=== PATIENT | male | born 1985 | race Caucasian/White ===

== ENCOUNTER 2016-12-18 23:34 | Emergency (ER) | payer MEDICAID ==
[~2016-12-18] VITALS: Ht 175.3 cm; Wt 68.0 kg
[~2016-12-18 23:34] MED LIST: FLEXERIL10 MG PO; LORTAB 5/500 501 TAB PO; LORTAB 500 MG-71 TAB PO; MOTRIN600 MG PO; PERCOCET 325 MG1 TA4 PO; ROBAXIN500 M1 PO; ULTRAM50 MG PO
--- NOTE | 2016-12-18 23:52 | Emergency Room Report ---
History of Present Illness Time Seen by [id number] Presenting Problem in Triage Pt arrived:Walked Presenting Problem:C/O FEVER AND ABDOMINAL PAIN ALL DAY. DENIES ANY VOMITING OR DIARRHEA STATES FEVER AT HOME WAS 100.9. 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 Y Clinical Suspician of Infection? Y Mental Status: 1 - Regular (Normal Baseline) Sepsis Risk:Low Sepsis Risk Have you (or family members/close friends) recently traveled outside the [place]? N If Yes, where/when: Have you had exposure to infectious disease within the past month? N TB? Other? Specify: Source patient, RN notes reviewed, family, old records Exam Limitations no limitations Comment lower abd pain with fever today with no rash or diarrhea and no gu sx Cardiac Chest Pain Chest pain indicative of cardiac No Timing/Duration this evening Severity moderate ALLERGIES Coded Allergies: prednisone (Intermediate, 11/06/16) History Medical History General CAD? No Angina: No OR: No Hypertension? No Hyperlipidemia? No CHF? No DVT? No PE? No COPD? No Asthma? No Anemia? No GERD? Yes Gastric ulcers? Yes GI Bleed? No Hernia? No Thyroid Problems? No Hypothyroidism? No CVA? No Seizures? No Diabetes? No Renal Insuffiency? No End Stage Renal Disease? No UTI? No Stones? No BPH? No GB Disease: No Nephritic Syndrome? No Asplenia? No Hepatitis? No Sickle Cell Disease? No Arthritis? No Migraines? No Cataracts? No Glaucoma? No MRSA? No HIV? No TB? No Anxiety? No Depression? No Cancer? No Site: N More? Yes Additional hx: MARIJUANA USE Immunization Hx DT/Tetanus < 1 YR AGO Surgical Hx Previous Surgery?N GUM SURGERY Social History Smoking Hx Smoker: Current Every Day Smoker Tobacco: Yes Type Cigarettes Packs/day < 1 Pack Alcohol Alcohol: No Drugs none Review of Systems All Other Systems Reviewed and Negative Constitutional fever Eyes denies drainage ENT denies: ear discharge. Respiratory denies cough Cardiovascular denies chest pain, denies syncope Gastrointestinal see HPI, abdominal pain, denies diarrhea, vomiting Genitourinary denies: dysuria, frequency, hesitancy, hematuria. Musculoskeletal denies back pain, denies joint pain, denies joint swelling, denies neck pain Skin denies rash Psychiatric/Neurological denies headache, denies seizure Physical Exam Vital Signs Vital Signs Date Time Temp Pulse Resp B/P Pulse O2 O2 Flow FiO2 Ox Delivery Rate 12/18 2340 97.7 70 18 137/81 100 - WBC >12,000 or <4,000 or 10% bands? 2 or more SIRS Criteria Met? B/P:137/81 MAP:99 Creatinine >2.0? UA output<0.5ml/kg/hr for 2 hrs? Platelet count >100,000? Lactate >2.0mmol/1? INR >1.2 or PTT > than 60 sec? Evidence of Organ Dysfunction? Provider documented clinical suspician of infection? Y Sepsis Criteria Count: 1 Sepsis Risk: Low Sepsis Risk General Appearance no apparent distress Eye Exam - bilateral eye PERRL, bilateral eye EOMI Ear, Nose, Throat normal ENT inspection Neck supple Respiratory Status No: respiratory distress. 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 No Results/Orders Laboratory Tests 12/19/16 0000: Amylase 78, Lipase 176 12/18/167: Sodium 143, Potassium 4.1, Chloride 107, Carbon Dioxide 34 H, BUN 14, Creatinine 1.2, Estimated Creat Clear 87, Estimated GFR (MDRD) 71, Glucose 107 H, Calcium 9.4, Total Bilirubin 0.5, AST 19, ALT 25, Alkaline Phosphatase 84, Total Protein 7.6, Albumin 3.8, Globulin 3.8 H, Albumin/Globulin Ratio 1.0 L, WBC 8.1, RBC 5.04, Hgb 15.5, Hct 46.4, MCV 92.1, RDW 12.4, Plt Count 258, MPV 7.2 L, Gran % 68.8, Gran # 5.6, Lymphocytes % 24.6, Monocytes % 4.9, Eosinophils % 1.2, Basophils % 0.5, Lymphocytes # 2.0, Monocytes # 0.4, Eosinophils # 0.1, Basophils # 0.0, PUBS MCHC 33.5, MCH 30.8, Urine Color YELLOW , Urine Appearance CLOUDY, Urine pH 8.0, Ur Specific [place] 1.015, Urine Protein TRACE H, Urine Ketones NEGATIVE, Urine Blood NEGATIVE, Urine Nitrate NEGATIVE, Urine Bilirubin NEGATIVE, Urine Urobilinogen 1.0, Ur Leukocyte Esterase NEGATIVE, Urine RBC NONE, Urine WBC OCC, Ur Squamous Epith Cells NONE, Amorphous Sediment 3+, Urine Bacteria TRACE, Urine Glucose NEGATIVE Current Medication Orders Sig/Tameka Start time Last Medication Dose Route Stop Time Status Admin Ketorolac 30 MG ONCE ONE 12/19 99 AC Tromethamine IV 12/19 010 Promethazine HCl 12.5 MG ONCE ONE 12/19 010 AC IV 12/19 0101 Promethazine HCl 1 MAC ONCE ONE 12/19 010 AC PO 12/19 010 Sodium Chloride 25 ML ONCE ONE 12/19 010 AC IV 12/19 0114 Sodium Chloride 1,000 ML .Q1H1M 12/19 0030 AC 12/19 IV 12/19 0130 0025 Sodium Chloride 10 ML PRN PRN 12/19 0030 AC IV 12/20 0024 Sodium Chloride 1,000 ML .STK-MED ONE 12/19 0021 DC IV Sodium Chloride 10 ML PRN PRN 12/18 2345 AC IV 12/19 2350 Orders Procedure Date/time Status DIET-NOTHING BY MOUTH 12/19 B Active LIPASE 12/19 0022 Complete AMYLASE 12/[address] ABD & PELVIS W/O CONTRAST 12/[address] ABD REQUEST 12/18 235 Complete IV SALINE LOCK 12/18 235 Active URINALYSIS/COMPLETE 12/18 235 Complete CBC WITH AUTO DIFF 12/18 235 Complete CHEM 12 PROFILE 12/18 2350 Complete XRAY/CT/US XRAY/CT/US CT abdomen, pelvis CT interpretation by discussed w/radiologist Time results known: 0050 CT Results normal/NAD Departure Departure Time of Disposition 005 Disposition DC Home or Self Care(routine) Clinical Impression Primary Impression: Abdominal pain Qualifiers: Abdominal location: lower abdomen, unspecified Qualified Code: R10.30 - Lower abdominal pain, unspecified Condition STABLE Patient Instructions DI for Abdominal Pain-Adult Additional Instructions fluids and see pcp for follow up Discharge Counseling Counseled pt/family regarding diagnosis, test results, medications/RX, follow up needs ED [place] [address]
[2016-12-18 23:58] LABS: HEMOGLOBIN 15.5 g/dL (14.1-18.0); LYMPH % 24.6 % (10-50); URINE BILIRUBIN - DIPSTICK NEGATIVE (NEG); URINE BLOOD NEGATIVE (NEG)
--- OUTSIDE RECORDS SUMMARY | 2016-12-19 00:07 | External Medical Summary Rpt ---
Author Author , HARRIET CAGLEOPAL Address Unknown Phone Care Team Providers Care Net Wpf Developer Name Role Phone AYOOB AND, AYOOB AND Unavailable Unavailable [facility], [facility] Unavailable Unavailable [facility], [facility] COLINDRES, COLINDRES Unavailable Unavailable WILBER OTTO, Unavailable Unavailable WILBER [facility], Unavailable Unavailable [facility], Unavailable Unavailable [facility] ZAMZAM, HARIGOVINDA Unavailable Unavailable R, ZAMZAM, HARIGOVINDA R [facility] # [id number], Unavailable Unavailable [facility] # [id number] GEMMA T, GEMMA T Unavailable Unavailable GODFREY MAT, GODFREY Unavailable Unavailable MAT DELAIR, DELAIR Unavailable Unavailable PINO FERNANDA, PINO FERNANDA Unavailable Unavailable KILEY, KILEY Unavailable Unavailable KILEY DUS, KILEY Unavailable Unavailable DUS DICIRO DOM, DICIRO Unavailable Unavailable DOM [facility] [place] FARAGASSO DEV, Unavailable Unavailable FARAGASSO DEV KALEB LAL, Unavailable Unavailable KALEB LAL SIEGEL MARIOLA, SIEGEL Unavailable Unavailable MARIOLA KELLER JR, FULLER, Unavailable Unavailable JR AURE RAJIV G, Unavailable Unavailable AURE, RAJIV G [facility] Unavailable Unavailable INC, [facility] Unavailable Unavailable IMAGING [facility], [facility] DENISE MILLICENT, DENISE MILLICENT Unavailable Unavailable VERNON WALKER KING, Unavailable Unavailable TUSHAR ORTEGA, Unavailable Unavailable [facility] Un[facility] Unavailable Unavailable SERVICES, [facility] RASHARD CALLOWAY, Unavailable Unavailable RASHARD CALLOWAY MD LABS, LABS Unavailable Unavailable LABS, LABS Unavailable Unavailable WILLIE PONCE, Unavailable Unavailable WILLIE PONCE ROBERT, Unavailable Unavailable [facility], Unavailable Unavailable [facility] Unavailable [facility]available PLL[facility], [facility] RADLILLIE SHA, Unavailable Unavailable RADLILLIE SHA [facility], [facility] Unavailable Unavailable [facility] MEGHAN RAGLAND, Unavailable Unavailable MEGHAN [facility]AGLADN [id number] MENDEZ MAR, MENDEZ Unavailable Unavailable MAR SCALF JEREMIAH, SCALF JEREMIAH Unavailable Unavailable ALMA LAGOS Unavailable Unavailable DEMOND Ro DANIEL G SEELEY ELL, SEELEY Unavailable Unavailable DYLAN SOKAN, JONAH O, Unavailable Unavailable SOKAN, JONAH O [facility], Unavailable Unavailable [facility], Unavailable Unavailable [facility] GARO SHARIF, GARO Unavailable Unavailable RYA STEARJOSE SET, Unavailable Unavailable STEARLEY SET STEARLEY, THA T, Unavailable Unavailable STEARLEY, THA T ESTEBAN, ESTEBAN Unavailable Unavailable ESTEBAN BARBARA, ESTEBAN Unavailable Unavailable BARBARA SWINEY, JOHN A, Unavailable Unavailable SWINEY, JOHN A [facility] Unavailable Unavailable HOSPITALS, [facility] Unavailable Unavailable MEDICINE P, [facility]available Unavailable ASSIST, [facility] ASS[facility], Unavailable Unavailable [facility], Unavailable Unavailable [facility] SHANNON HONEYCUTT, Unavailable Unavailable SHANNON HONEYCUTT [facility] Unavailable Unavailable #493, [id number] KALEB APONTE, FAY, Unavailable Unavailable KALEB QUIÑONEZ W, KHANG W Unavailable Unavailable YOUNG JR CARRASCO, YOUNG Unavailable Unavailable LUNA Purpose Continuity of Care Document - 06-23-2008 through 2016 Problems Code Diagnosis DOS Provider Status M542 CERVICALGIA 11-06-2016 [facility] J135JIL STRAIN 11-06-2016 [facility] NECK LEVL INIT ENC 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 SITE SERV UNSPECIFIED FOUNDATION M545 LOW BACK 10-10-2016 [facility] M5416 RADICULOPAT 10-01-2016 [facility] HY [facility] MEDICAL GROUP M5442 LUMBAGO 10-01-2016 [facility] WITH HEALTH [facility] MEDICAL LEFT SIDE GROUP Z5181 ENCOUNTER 10-01-2016 MD LABS FOR THERAPEUTIC DRUG LEVEL MONITORING M92427 OTHER LONG 10-01-2016 MD LABS TERM CURRENT DRUG THERAPY K219 GASTRO-ESOP 09-01-2016 [facility] H [facility] DISEASE MEDICAL WITHOUT GROUP ESOPHAGITIS M6281 MUSCLE 09-01-2016 [facility] GENERALIZED MEDICAL GROUP [id number] PAIN IN 08-11-2016 [facility] LEFT LEG PHYSICIANS ASSIST Z0000 ENCOUNTER 08-11-2016 GEN ADULT [facility] MED EXAM HOSPITALS W/O ABNORMAL FIND M4806 SPINAL 07-30-2016 [facility] L[facility] REGION GROUP Z6822 BODY MASS 06-09-2016 [facility] INDEX BMI HEALTH 22.0-22.9 MEDICAL ADULT GROUP K5909 OTHER 11-19-2015 [facility] CONSTIPATIO HEALTH N MEDICAL GROUP K921 MELENA 11-19-2015 [facility] [id number] STRAIN 10-11-2015 [facility] MUSCLE HEALTH FASCIA & MEDICAL TENDON LOW GROUP BACK INITIAL [id number] STRN UNS 10-11-2015 [facility] M&T SHLDR HEALTH UP ARM LEVL MEDICAL RT ARM GROUP INIT ENC R0789 OTHER CHEST 07-20-2015 [facility] R079 CHEST PAIN 07-20-2015 [place] [facility] U[place]PEC[facility]IED SERV [facility] Z720 TOBACCO USE 07-20-2015 [facility] 7242 LUMBAGO 09-30-2012 [facility] MEDICINE P 8479 SPRAIN AND 09-30-2012 [facility] STRAIN OF FAMILY UNSPECIFIED MEDICINE P SITE OF BACK 7243 SCIATICA 09-20-2012 [facility] 7820 DISTURBANCE 09-20-2012 [facility] SENSATION 70633 OTHER 09-20-2012 [facility] DYSPNEA AND HOSPITAL RESPIRATORY ABNORMALITI ES V5869 LONG-TERM 09-20-2012 [facility] (CURRENT) HOSPITAL USE OF OTHER MEDICATIONS 9953 ALLERGY 09-15-2012 [facility] UNSPECIFIED [facility]ERGENCY NOT SERVICES ELSEWHERE CLASSIFIED E9320 ADRENL 09-15-2012 [facility] STEROIDS SERVICES CAUS ADVRS EFF TX USE 7295 PAIN IN 08-30-2012 [place] [facility] SOFT [facility] TISSUES OF [facility]OUNDAT[facility] LIMB 71770 ESOPHAGEAL 03-22-2012 [place] [facility] REFLUX [facility] 29358 CHEST PAIN 03-22-2012 [place] [facility] UNSPECIFIED SERV [facility] 79433 ABDOMINAL 03-22-2012 [place] [facility] PAIN, SERV EPIGASTRIC [facility] 24469 OTHER 03-21-2012 [facility] PAIN 8460 SPRAIN AND 03-21-2012 [facility] STRAIN OF EMERGENCY LUMBOSACRAL SERVICES 8472 LUMBAR 03-21-2012 [facility] STRAIN 7244 THORACIC/JOAQUIN 02-13-2012 [facility] MBOSACRAL EMERGENCY NEURITIS/RA SERVICES DICULITIS UNSPEC 9597 INJURY 10-05-2010 [place] [facility] OTHER&UNSPE SERV CIFIED KNEE FOUNDATIO LEG ANKLE&FOOT 7062 SEBACEOUS 10-01-2010 [facility] 71786 UNSPECIFIED 09-28-2010 [place] [facility] ENTHESOPATH [facility] Y OF ANKLE AND TARSUS 15829 UNSPECIFIED 09-28-2010 [facility] 07360 OTHER 09-28-2010 [place] [facility] GANGLION&CY SERV ST OF F[facility]AT[facility] SYNOVIUM TENDON&BURS A 7822 LOCALIZED 09-28-2010 [place] [facility] SUPERFICIAL SERV SWELLING FOUNDAT[facility] MASS OR LUMP 87646 RECURRENT 09-02-2010 [place] [facility] DISLOCATION SERV OF [facility] SHOULDER JOINT 98594 PAIN IN 11-23-2009 [place] [facility] JOINT, SERV SHOULDER [facility]OUND[facility] REGION 01366 CLOSED 11-23-2009 [facility] DISLOCATION EMERGENCY OF SERVICES SHOULDER ASSOCIATES UNSPECIFIED SITE V4589 OTHER 08-25-2009 [place] [facility] POSTSURGICA SERV L STATUS FOUNDAT[facility] OTHER 7245 UNSPECIFIED 07-09-2009 [place] [facility] BACKACHE SERV [facility] V1588 PERSONAL 07-09-2009 [place] HISTORY OF HOSPITAL FALL 87644 CLOSED 06-21-2009 [facility] [place] ANTERIOR RADIOLOGY DISLOCATION OF HUMERUS E8499 UNSPECIFIED 06-10-[address] HOSP[address] OCCURRENCE E9270 OVEREXERTIO 06-10-2009 [facility] N FROM HOSPITAL SUDDEN STRENUOUS MOVEMENT 5220 PULPITIS 03-13-2009 [facility] NARVAEZ [facility] N02 8470 NECK SPRAIN 01-14-2009 [place] [facility] AND STRAIN SERV [facility] 79878 CONTUSION 01-14-2009 [place] [facility]ICAL OF SHOULDER SERV REGION [facility] 91014 HEAD 01-14-2009 [place] [facility] INJURY, SERV UNSPECIFIED FOUNDAT[facility] 93693 INJURY OF 01-14-2009 [place] [facility] FACE AND SERV NECK OTHER FOUNDATIO AND UNSPECIFIED 9592 INJURY 01-14-2009 [place] [facility] OTHER&UNSPE SERV CIFIED [facility]OUNDATIO SHOULDER&UP PER ARM 9593 INJURY 01-14-2009 [place] [facility] OTHER&UNSPE SERV CIFIED FOUNDATIO ELBOW FOREARM&WRI ST E8809 ACCIDENTAL 01-14-2009 [facility] MEDICAL FALL ON OR SERV FROM OTHER FOUNDATIO STAIRS OR STEPS V5489 OTHER 01-07-2009 [facility] 77391 DEVELOPMENT 08-16-2008 [facility] MEDICAL DISLOCATION IMAGING JOINT ASSOCIATES SHOULDER REGION E8490 PLACE OF 08-09-2008 [facility] OCCURRENCE, MEDICAL HOME [facility] 5210 DENTAL 07-03-2008 QU[facility] Escobar [facility]Z [facility] N02 S16.1XXA STRAIN OF MUSCLE, FASCIA AND TENDON AT NECK LEVEL, INIT Medications Na ND Rx Da Fi Fi Am Da Di Ph RX Ph St me C No te ll ll ou ys ag ar # ys at rm s nt no ma ic us Or Da si cy ia de te s n re d TR 00 06 07 16 4 00 WA Ac AM 37 -1 -1 .0 00 L- ti AD 84 5- 4- 00 04 MA ve OL 15 20 20 53 RT 10 17 17 06 HC 5 54 PH L AR 50 MA CY MG #5 TA 91 BL ET ME 31 06 07 60 30 00 WA Ac TH 72 -1 -1 .0 00 L- ti OC 20 5- 4- 00 07 MA ve AR 53 20 20 49 RT BA 30 17 17 37 MO 1 31 PH L AR 50 MA 0 CY MG #5 TA 91 BL ET OX 00 05 06 60 15 00 BA Ac YC 40 -1 -0 .0 00 PT ti OD 60 0- 2- 00 00 IS ve ON 52 20 20 20 T -A 20 17 17 04 HE CE 5 92 AL TA TH MS NO RI PH CH EN MO ND 7. 5- AL 32 OF 5 ES SI ON AL PH AR MA CY NI 00 05 06 28 28 00 BA Ac CO 53 -1 -0 .0 00 PT ti TI 61 0- 2- 00 00 IS ve NE 10 20 20 60 T 88 17 17 51 HE 21 8 18 AL TH MG /2 RI 4H CH R MO PA ND TC H AL OF ES SI ON AL PH AR MA CY OX 00 04 05 60 15 00 BA Ac YC 40 -1 -0 .0 00 PT ti OD 60 0- 5- 00 00 IS ve ON 52 20 20 20 T -A 20 17 17 03 HE CE 5 43 AL TA TH MS NO RI PH CH EN MO ND 7. 5- AL 32 OF 5 ES SI ON AL PH AR MA CY OX 65 03 03 45 11 00 BL Ac YC 16 -0 -3 .0 00 UE ti OD 20 8- 1- 00 00 GR ve ON 20 20 28 -A 75 17 17 81 S CE 0 64 FA TA MS MS LY NO PH PH EN AR MA 7. CY 5- 32 5 OX 65 02 03 45 11 00 BL Ac YC 16 -1 -1 .0 00 UE ti OD 20 4- 0- 00 00 GR ve ON 20 28 -A 75 17 17 61 S CE 0 14 FA TA MS MS LY NO PH PH EN AR MA 7. CY 5- 32 5 OX 65 01 02 60 15 00 BL Ac YC 16 -1 -1 .0 00 UE ti OD 20 6- 0- 00 00 GR ve ON 20 28 -A 75 17 17 37 S CE 0 57 FA TA MS MS LY NO PH PH EN AR MA 7. CY 5- 32 5 OX 65 12 01 60 15 00 BL Ac YC 16 -1 -1 .0 00 UE ti OD 20 5- 3- 00 00 GR ve ON 20 20 28 -A 75 16 17 11 S CE 0 95 FA TA MS MS LY NO PH PH EN AR MA 7. CY 5- 32 5 OX 00 05 05 16 4 CV 36 DA Ac YC 59 -0 -0 .0 S 28 LE ti OD 10 8- 8- 00 PH 91 ve ON 93 20 20 AR II -A 30 10 10 MA CE 1 CY TH TA # OM MS NO 02 PH 33 EN 2 7. 5- 32 5 OX 00 01 02 00 15 1 WA 22 CE Ac YC 40 -2 -1 .0 L- 17 LL ti OD 60 8- 1- 00 MA 43 AR ve ON 51 20 20 RT 4 OS E- 20 10 10 I AC 1 PH - ET AR YO AM MA RB IN CY A OP PA HE #4 TR N 93 IC 5- K 32 M 5 60 10 11 00 20 3 SO 32 MO Ac 95 -2 -0 .0 PE 57 RR ti 10 0- 5- 00 RS 99 IS ve 79 20 20 77 09 09 FA RO 0 MS BE LY RT H DR UG PE 00 10 10 00 30 7 SO 32 AL Ac NI 78 -1 -2 .0 PE 52 LE ti CI 11 4- 2- 00 RS 73 N ve LL 65 20 20 BR IN 51 09 09 FA AN 0 MS DO VK LY N I 50 DR 0 UG MG TA BL ET ET 51 10 10 00 16 4 SO 32 AL Ac OD 67 -1 -2 .0 PE 52 LE ti OL 24 4- 2- 00 RS 74 N ve AC 01 20 20 BR 80 09 09 FA AN 40 1 MS DO 0 LY N MG I DR TA UG BL ET 00 08 09 00 16 2 RI 28 No Ac 40 -2 -1 .0 TE 34 t ti 60 4- 0- 00 5 Av ve 35 20 20 AI ai 70 09 09 D la 5 #7 bl 89 e 2 IB 55 08 08 00 40 13 SO 32 FL Ac UP 11 -1 -2 .0 PE 00 AN ti RO 10 7- 7- 00 RS 77 AG ve FE 68 20 20 AN N 30 09 09 FA 60 5 MS JA 0 LY ME MG S DR P TA UG BL ET 00 08 08 00 6. 2 SO 32 FL Ac 59 -1 -2 00 PE 00 AN ti 10 7- 7- 0 RS 78 AG ve 34 20 20 AN 90 09 09 FA 5 MS JA LY ME S DR P UG TR 65 04 05 01 20 5 SO 31 Ac AM 16 -1 -0 .0 PE 15 LL ti AD 20 7- 7- 00 RS 27 AF ve OL 62 20 20 LO 71 09 09 FA R HC 1 MS OS L LY IA [address] M MG UG TA BL ET TR 65 04 04 00 20 5 SO 31 Ac AM 16 -1 -2 .0 PE 15 LL ti AD 20 7- 3- 00 RS 27 AF ve OL 62 20 20 LO 71 09 09 FA R HC 1 MS OS L LY IA [address] M MG UG TA BL ET 00 03 04 00 6. 1 EA 12 FL Ac 59 -2 -[address] 06 AN ti 10 5- 9- 0 SI 99 AG ve 38 20 20 DE AN 50 09 09 1 PH JA AR ME MA S CY P OF CY NT HI AN A 00 03 03 00 12 3 EA 11 SO Ac 59 -1 -[address] 96 KA ti 10 8- 6- 00 SI 38 N ve 38 20 20 DE BA 50 09 09 BA 1 PH TU AR ND MA E CY O OF CY NT HI AN A ET 51 02 03 00 16 4 SO 30 AL Ac OD 67 -2 -1 .0 PE 66 LE ti OL 24 5- 2- 00 RS 39 N ve AC 01 20 20 BR 80 09 09 FA AN 40 1 MS DO 0 LY N MG I TA UG BL ET 60 02 02 00 24 4 CA 94 MC Ac 95 -0 -2 .0 RR 01 LA ti 10 9- 6- 00 IN 94 UR ve 79 20 20 GT IN 77 [address] BELL UG LD R AM 00 02 02 00 21 7 SO 30 MC Ac OX 78 -1 -2 .0 PE 53 LA ti IC 12 0- 6- 00 RS 13 UR ve IL 61 20 20 IN LI 30 09 09 FA N 5 MS DO 50 LY NA [address] R UG CA PS UL E 49 02 02 00 30 7 CA 94 MC Ac 88 -0 -2 .0 RR 01 LA ti 40 9- 6- 00 IN 93 UR ve 77 20 20 GT IN 90 [address] RAY HILL LD R ET 51 01 01 00 16 4 SO 30 AL Ac OD 67 -2 -3 .0 PE 37 LE ti OL 24 0- 0- 00 RS 27 N ve AC 01 20 20 BR 80 09 09 FA AN 40 1 MS DO 0 LY N MG I TA UG BL ET PE 00 01 01 00 28 7 SO 30 AL Ac NI 78 -2 -3 .0 PE 37 LE ti CI 11 0- 0- 00 RS 26 N ve LL 65 20 20 BR IN 51 09 09 FA AN 0 MS DO VK LY N I 50 DR 0 UG MG TA BL ET Procedures Procedure DOS Code Location Performer Comment RADEX 88395 [facility] SPINE 7 MEDICAL CERVICAL IMAGING 4 OR 5 ASS VIEWS DRUG TST G0483 LABS MD LABS DEFINITV 7 DR ID METH P DAY 22/MORE DR MALDONADO DRUG TEST 87618 LABS MD LABS PRSMV 7 INSTRMNT CHEMISTRY ANALYZERS MRI 87288 [facility] [place] RADMANESH SPINAL 6 RADIOLOGY SHA CANAL LUMBAR W/O CONTRAST MATERIAL MRI 89314 [facility] SPINAL 6 [facility] LUMBAR W/O CONTRAST MATERIAL INJECTION J1885 [facility] KILEY [address] [place] [address] [facility] TROM[facility]AM INE PER 15 MG THERAPEUT 36571 [facility] KILEY IC 6 HEALTH DUS PROPHYLAC MEDICAL TIC/DX GROUP INJECTION SUBQ/IM RADEX 31281 [facility] [place] SCALF JEREMIAH SPINE 6 RADIOLOGY LUMBSCRL COMPL W/BENDING VIEWS MIN [address] [place] [address] [facility] FREE 6 [facility] [address] [facility] THYROID 6 [facility] STIMULATI [facility]OSP HOSP NG HORMONE TSH COMPREHEN 46285 [facility] SIVE 6 [facility] METABOLIC [facility]OSP HOSP PANEL 25 67741 [facility] HYDROXY 6 [facility] INCLUDES HOSP HOSP FRACTIONS IF PERFORMED RADEX 79954 [facility] SPINE 6 [facility] LUMBOSACR [facility] [place] AL ONLY BENDING 2/3 VIEWS BLOOD 04449 [facility] COUNT 6 [facility] COMPLETE HOSP HOSP AUTO&AUTO DIFRNTL WBC RADEX 34854 [facility] SHOULDER 6 [facility] MINIMUM 2 GROUP GROUP VIEWS RADEX 43508 [facility] SPINE 6 [facility] AL 2/3 GROUP GROUP VIEWS COMPREHEN 65624 [facility] SIVE 6 Y Y METABOLIC HOSPITAL HOSPITAL PANEL ECG 03691 [facility] 6 Y Y ECG HOSPITAL HOSPITAL W/LEAST 12 LDS TRCG ONLY W/O I&R FIBRIN 27678 [facility] DGRADJ 6 Y Y PRODUCTS HOSPITAL HOSPITAL D-DIMER QUANTITAT VERA ECG 38821 [facility] DICIRO ROUTINE 6 CHICA DOM ECG EMERGENCY W/LEAST PHYS 12 LDS I&[place] [address] [facility] TROPONIN 6 Y Y QUANTITAT HOSPITAL HOSPITAL VERA BLOOD 12378 [facility] COUNT 6 Y Y COMPLETE HOSPITAL HOSPITAL AUTO&AUTO DIFRNTL WBC RADIOLOGI 84370 [facility] C EXAM 6 Y Y CHEST 2 HOSPITAL HOSPITAL VIEWS FRONTAL&L ATERAL ECG 25347 [facility] ROUTINE 3 MEDICAL OTTO ECG SERV W/LEAST FOUNDATIO 12 LDS I&R ONLY ECG 93697 [place] SIEGEL ROUTINE 2 MEDICAL NAN ECG SERV W/LEAST FOUNDATIO 12 LDS I&R ONLY INJECTION J1885 [facility] 2 Y Y KETOROLAC [facility] TROMETHAM INE PER 15 MG INJ J2930 [facility] METHYLPRD 2 Y Y NISOLONE [facility] SODIUM SUCCNAT TO 125 MG THERAPEUT 99731 [facility] IC 2 Y Y PROPHYLAC [facility] TIC/DX INJECTION SUBQ/IM RADEX 09128 [place] AYOOB AND FOOT 1 MEDICAL COMPLETE SERV MINIMUM 3 FOUNDATIO VIEWS RADEX 58665 [place] REXRO[place] FOOT 1 MEDICAL SHU COMPLETE SERV MINIMUM 3 FOUNDATIO VIEWS RADEX 04398 [place] AYOOB AND SHOULDER 1 MEDICAL COMPLETE SERV MINIMUM 2 FOUNDATIO VIEWS RADEX 23313 [place] ZAMZAM, SHOULDER 0 MEDICAL HARIGOVIN COMPLETE SERV DA R MINIMUM 2 FOUNDATIO VIEWS NONINVASI 84480 [facility] VE 0 Y Y EAR/PULSE [facility] OXIMETRY SINGLE DETER INJECTION J1885 [facility] 0 Y Y [facility] TROMETHAM INE PER 15 MG THER 98843 [facility] PROPH/DX 0 Y Y NJX IV [facility] PUSH SINGLE/1S T SBST/DRUG THERAPEUT 23631 [facility] IC 0 Y Y PROPHYLAC [facility] TIC/DX INJECTION SUBQ/IM RADEX 27506 [place] DENISE MILLICENT SHOULDER 0 MEDICAL COMPLETE SERV MINIMUM 2 FOUNDATIO VIEWS INJECTION J1885 [facility] 0 Y Y KETOROLAC [facility] TROMETHAM INE PER 15 MG RADEX 56796 [facility] [place] AURE, SHOULDER 0 RADIOLOGY RAJIV G COMPLETE MINIMUM 2 VIEWS RADEX 45461 [place] SHOULDER 0 CO CO [facility] MINIMUM 2 [place] [address] [place]AG[place] SHOULDER 0 CO , [facility] W/MANIPUL ATION W/O ANES DEEP 200 D9220 QU[facility] FLORES, SEDATION/ 9 NARVAEZ [facility] ANESTHESI N02 A-1ST [address] 08-23-200 22910 [facility] HEAD/BRAI 9 Y Y N W/O HOSPITAL HOSPITAL CONTRAST MATERIAL INJECTION J2405 [facility] 9 Y Y [facility] PER 1 MG RADEX 48788 [facility] SHOULDER 9 Y Y [address] [place] [address] [place] APONTE, CERVICAL 9 MEDICAL KALEB N SPINE W/O SERV CONTRAST FOUNDATIO MATERIAL RADEX 50933 [facility] ELBOW 9 Y Y COMPLETE [facility] MINIMUM 3 VIEWS THER 87337 [facility] PROPH/DX 9 Y Y NJX IV HOSPITAL HOSPITAL PUSH SINGLE/1S T SBST/DRUG INJECTION J1170 [facility] 9 Y Y HYDROMORP [facility] OSCAR UP TO 4 MG RADEX 59134 [facility] SHOULDER 9 Y Y COMPLETE [facility] MINIMUM 2 VIEWS NONINVASI 73740 [facility] VE 9 Y Y EAR/PULSE [facility] OXIMETRY SINGLE DETER THERAPEUT 58420 [facility] IC 9 Y Y INJECTION [facility] IV PUSH EACH NEW DRUG CLOSED 7971 NANCY CRUZ REDUCTION 9 MEM HOSP [facility]OS[facility] OF INC INC DISLOCATI ON OF SHOULDER RADEX 86768 NANCY CRUZ SHOULDER 9 MEM HOSP [facility]OS[facility] COMPLETE INC [place] MINIMUM [address] [place] [address] [facility] SHOULDER 9 EMERGENCY KALEB P DISLC SERVICES W/MANIPUL ATION W/[place] [address] [facility] SHOULDER 9 , SHANNON M , SHANNON M DISLC W/MANIPUL ATION W/O ANES RADEX 14168 [place] SHOULDER 9 CO CO COMPLETE [facility] MINIMUM 2 VIEWS RADEX 90366 [facility] ROSARIO, SHOULDER 9 MEDICAL WILLIE P COMPLETE IMAGING MINIMUM 2 ASSOCIATE VIEWS S RADEX 35931 [facility] ROSARIO, SHOULDER 9 MEDICAL WILLIE P 1 VIEW IMAGING ASSOCIATE S CLOSED 7971 NANCY CRUZ REDUCTION 9 [facility] [place] [address] [place] LAL, SHOULDER 9 EMERGENCY KALEB P DISLC SERVICES W/MANIPUL ATION W/[place] [address] [place] YUN, SHOULDER 9 EMERGENCY JONAH DISLC SERVICES O W/MANIPUL ATION W/O ASSOCIATE JOSH Tineo RADEX 26637 ANNI PONCE, SHOULDER 9 MEDICAL WILLIE P 1 VIEW IMAGING ASSOCIATE S CLOSED 7971 NANCY CRUZ REDUCTION 9 [facility] OF INC INC DISLOCATI ON OF SHOULDER RADEX 41487 NANCY CRUZ SHOULDER 9 MEM HOSP [facility] COMPLETE INC INC MINIMUM 2 VIEWS ORTHOPANT 40275 [facility] [place] OGRAM 9 SOLANGE Hernandez IIIPSC N02 DEEP D9220 [facility] [place] SEDATION/ 9 SOLANGE Hernandez GENERAL IIIPSC ANESTHESI N02 A-1ST 30 MINUTES Encounters Encounter Start End Date Code Location Performer Type Date EMERGENCY 04799 KAMI KELLER, 7 7 PHYSICIAN JR PERALTA S, PLLC T VISIT HIGH/URGE NT SEVERITY OFFICE 74454 [facility]AT 7 7 MEDICAL ASTELLANO ION SERV S NEW/ESTAB FOUNDATIO PATIENT N 40 MIN OFFICE 07777 [facility] OUTPATIEN 7 7 [facility] T VISIT 5 E MINUTES [facility]OS[facility] - 7 7 [facility]ALTHCAR OUTPATIEN E T HOSPITALS OFFICE 29287 ISLAM ESTEBAN OUTPATIEN 7 7 HEALTH T VISIT MEDICAL 25 GROUP MINUTES OFFICE 03484 ISLAM KILEY OUTPATIEN 7 7 HEALTH T VISIT MEDICAL 15 GROUP MINUTES HOSPITAL [facility] - 7 7 HEALTHCAR OUTPATIEN E T HOSPITALS OFFICE 56052 DAVID CONSULTAT 7 7 [place] ION PHYSICIAN NEW/ESTAB S ASSIST PATIENT 40 MIN OFFICE 38617 [facility] 7 7 [facility] T VISIT 5 E MINUTES [facility]OSPITALS OFFICE 80759 ISLAM [facility] OUTPATIEN 7 7 HEALTH T VISIT MEDICAL 15 GROUP MINUTES OFFICE 22777 [facility] OUTPATIEN 7 7 HEALTH T VISIT MEDICAL 15 GROUP MINUTES OFFICE 70522 [facility] OUTPATIEN 7 7 HEALTH T VISIT MEDICAL 25 GROUP MINUTES OFFICE 94118 ISLAM [facility] OUTPATIEN 6 6 HEALTH DUS T VISIT MEDICAL 15 GROUP MINUTES OFFICE 07051 ISLAM [facility] OUTPATIEN 6 6 HEALTH DUS T VISIT MEDICAL 15 GROUP MINUTES OFFICE 74339 ISLAM K[facility] OUTPATIEN 6 6 HEALTH DUS T VISIT MEDICAL 25 GROUP MINUTES OFFICE 55821 ISLAM ESTEBAN OUTPATIEN 6 6 HEALTH BARBARA T VISIT MEDICAL 15 GROUP MINUTES OFFICE 97578 ISLAM [facility] OUTPATIEN 6 6 HEALTH DUS T VISIT MEDICAL 15 GROUP MINUTES HOSPITAL [facility] - 6 6 HEALTH OUTPATIEN SHERIDAN T OFFICE 37356 ISLAM KILEY OUTPATIEN 6 6 HEALTH DUS T VISIT MEDICAL 25 GROUP MINUTES OFFICE 12742 ISLAM [facility] OUTPATIEN 6 6 HEALTH DUS T VISIT MEDICAL 15 GROUP MINUTES OFFICE 49522 ISLAM [facility] OUTPATIEN 6 6 HEALTH DUS T VISIT MEDICAL 15 GROUP MINUTES OFFICE 06618 [facility] OUTPATIEN 6 6 HEALTH DUS T VISIT MEDICAL 15 GROUP MINUTES [facility]OSP[facility] - 6 6 [facility] OUTPATIEN HOSP T OFFICE 92239 ISLAM KI[facility] OUTPATIEN 6 6 HEALTH DUS T NEW 30 MEDICAL MINUTES GROUP OFFICE 50376 [facility] OUTPATIEN 6 6 HEALTH T NEW 45 MEDICAL MINUTES GROUP EMERGENCY 98346 [facility]IT 6 6 Y [facility] T VISIT HIGH/URGE NT SEVERITY [facility] 94739 [facility] DEPT 6 6 [place] DOM VISIT EMERGENCY HIGH PHYS SEVERITY& THREAT FUNCJ OFFICE 15211 [facility] 3 3 [place] FAMILY ELL T NEW 30 MEDICINE MINUTES P EMERGENCY 41601 [facility] 3 3 [place] DEPARTMEN EMERGENCY T VISIT PHYS MODERATE SEVERITY HOSPITAL [facility] 3 3 [facility] 14683 [place] MENDEZ 3 3 EMERGENCY MAR DEPARTMEN SERVICES T VISIT HIGH/URGE NT SEVERITY EMERGENCY 83518 [place] NAGY 3 3 EMERGENCY DEV DEPARTMEN SERVICES T VISIT MODERATE SEVERITY EMERGENCY 45325 MER PINO FERNANDA 3 3 MEDICAL DEPARTMEN SERV T VISIT FOUNDATIO MODERATE SEVERITY EMERGENCY 59205 MER GODFREY 2 2 MEDICAL MAT DEPARTMEN SERV T VISIT FOUNDATIO HIGH/URGE NT SEVERITY [facility]OSP[facility] 66814 [place] WYMAN 2 2 EMERGENCY RYA DEPARTMEN SERVICES T VISIT HIGH/URGE NT SEVERITY EMERGENCY 63676 UNIVERSIT 2 2 Y [facility] HOSPITAL T VISIT LOW/MODER SEVERITY EMERGENCY 16114 UN[facility]ERSIT 2 2 Y [facility] [facility] T VISIT MODERATE SEVERITY [facility]OSPITAL [facility] 21549 UNIVERSIT 1 1 Y [facility] T VISIT LOW/MODER SEVERITY [facility]OSPITAL [facility] 1 [facility] 71164 UNIVERSIT 1 1 Y [facility] T VISIT LOW/MODER SEVERITY [facility]OSPITAL [facility] 41444 MER REN JR 1 1 [facility] DEPARTMEN SERV T VISIT FOUNDATIO MODERATE SEVERITY EMERGENCY 83402 APOLONIA RODRIGUEZCheyanne, 0 0 EMERGENCY JOHN DEPARTMEN SERVICES A T VISIT MODERATE ASSOCIATE SEVERITY S EMERGENCY 22407 APOLONIA MENENDEZ T 0 0 [facility] MOD[facility]ATE SEVERITY H[facility] - 0 0 [facility] T EMERGENCY 03689 UNIVERSIT 0 0 Y [facility] T VISIT LOW/MODER SEVERITY [facility] - 0 0 [facility] 30947 MER DE LA ROSA, 0 0 MEDICAL THA T DEPARTMEN SERV T VISIT FOUNDATIO MODERATE SEVERITY HOSPITAL [facility]ERSIT - 0 0 [facility] 47431 UNIVERSIT 0 0 Y [facility] T VISIT LOW/MODER SEVERITY EMERGENCY 26479 MER DE LA ROSA 0 0 MEDICAL SET DEPARTMEN SERV T VISIT FOUNDATIO MODERATE SEVERITY EMERGENCY 74234 CHELY 0 0 CO [facility] T VISIT LIMITED/M [facility] HOSPITAL CHELY - 0 0 [facility] T EMERGENC[facility] 41868 UNIVERSIT 9 9 Y [facility] T VISIT HIGH/URGE NT SEVERITY HOSPITAL UNIVERSIT - 9 9 [facility] EMER[facility]ENC[facility] 85772 APOLONIA LAL, 9 9 EMERGENCY KALEB P DEPARTMEN SERVICES T VISIT HIGH/URGE ASSOCIATE NT S SEVERITY EMERGENCY 91356 NANCY 9 9 [facility] T VISIT MODERATE SEVERITY HOSPITAL NANCY - 9 9 [facility] - 9 9 [facility] T EMERGENCY 88071 CHELY 9 9 [facility] T [facility]ISIT LIMITED/M [facility]PITAL NANCY - 9 9 [facility] 71904 APOLONIA LAL, 9 9 EMERGENCY [facility] SERVICES T VISIT MODERATE ASSOCIATE SEVERITY S EMERGENCY 09919 NANCY 9 9 [facility] T VISIT LOW/MODER SEVERITY HOSPITAL NANCY - 9 9 [facility] EMERGENCY 59433 NANCY 9 9 [facility] T VISIT HIGH/URGE NT SEVERITY OFFICE 93429 MAHENDRA STERLING 9 9 [facility] N[facility]
--- OUTSIDE RECORDS SUMMARY | 2016-12-19 00:07 | External Medical Summary Rpt ---
Author Author , HARRIET CAGLEOPAL Address Unknown Phone [email or web address] Care Team Providers Care Garage Hand Name Role Phone AYOOB AND, AYOOB AND Unavailable Unavailable [facility] Unavailable Unavailable MEDICAL GROUP, [facility] Unavailable Unavailable SHERIDAN, [facility] COLINDRES, COLINDRES Unavailable Unavailable WILBER [facility], Unavailable Unavailable [facility], Unavailable Unavailable [facility], Unavailable Unavailable [facility] ZAMZAM, HARIGOVINDA Unavailable Unavailable R, ZAMZAM, HARIGOVINDA R [facility] # [id number], Unavailable Unavailable [facility] # [id number] GEMMA T, GEMMA T Unavailable Unavailable GODFREY MAT, GODFREY Unavailable Unavailable MAT DELAIR, DELAIR Unavailable Unavailable PINO FERNANDA, PINO FERNANDA Unavailable Unavailable KILEY, KILEY Unavailable Unavailable KILEY DUS, KILEY Unavailable Unavailable DUS DICIRO DOM, DICIRO Unavailable Unavailable DOM [facility] Un[facility] [place] [place] FARAGASSO DEV, Unavailable Unavailable FARAGASSO DEV KALEB LAL, Unavailable Unavailable KALEB LAL SIEGEL MARIOLA, SIEGEL Unavailable Unavailable MARIOLA KELLER JR, FULLER, Unavailable Unavailable JR AURE RAJIV G, Unavailable Unavailable AURE, RAJIV G [facility] Unavailable Unavailable INC, [facility] Unavailable Unavailable IM[facility]ING [facility], [facility] DENISE MILLICENT, DENISE MILLICENT Unavailable Unavailable VERNON WALKER KING, Unavailable Unavailable TUSHAR ORTEGA, Unavailable Unavailable [facility] Un[facility] Unavailable Unavailable SERVICES, [facility] RASHARD CALLOWAY, Unavailable Unavailable RASHARD CALLOWAY MD LABS, LABS Unavailable Unavailable LABS, LABS Unavailable Unavailable WILLIE PONCE, Unavailable Unavailable WILLIE PONCE ROBERT, Unavailable Unavailable [facility], Unavailable Unavailable [facility], Unavailable Unavailable PLL[facility], [facility] RADLILLIE SHA, Unavailable Unavailable RADLILLIE SHA [facility], [facility] Unavailable Unavailable [facility] MEGHAN RAGLAND, Unavailable Unavailable MEGHAN RAGLAND [id number] MENDEZ MAR, MENDEZ Unavailable Unavailable MAR SCALF JEREMIAH, SCALF JEREMIAH Unavailable Unavailable ALMA LAGOS Unavailable Unavailable DEMOND Ro DANIEL G SEELEY ELL, SEELEY Unavailable Unavailable DYLAN SOKAN, JONAH O, Unavailable Unavailable SOKAN, JONAH O [facility], Unavailable Unavailable [facility], Unavailable Unavailable [facility] GARO SHARIF, GARO Unavailable Unavailable RYA STEARJOSE SET, Unavailable Unavailable STEARLEY SET STEARLEY, THA T, Unavailable Unavailable STEARLEY, THA T ESTEBAN, ESTEBAN Unavailable Unavailable ESTEBAN BARBARA, ESTEBAN Unavailable Unavailable BARBARA SWINEY, JHON A, Unavailable Unavailable SWINEY, JOHN A [facility] Unavailable Unavailable HOSPITALS, [facility] Unavailable Unavailable MEDICINE P, [facility] Unavailable Unavailable ASSIST, [facility], Unavailable Unavailable [facility], Unavailable Unavailable [facility] SHANNON HONEYCUTT, Unavailable Unavailable SHANNON HONEYCUTT [facility] Unavailable Unavailable #493, [facility] KALEB APONTE, FAY, Unavailable Unavailable KALEB QUIÑONEZ W, KHANG W Unavailable Unavailable YOUNG JR CARRASCO, YOUNG Unavailable Unavailable LUNA Purpose Continuity of Care Document - 06-23-2008 through 2016 Problems Code Diagnosis DOS Provider Status M542 CERVICALGIA 11-06-2016 [facility] [id number] STRAIN 11-06-2016 [facility] NECK LEVL INIT ENC 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 M5416 RADICULOPAT 10-01-2016 [facility] M5442 LUMBAGO 10-01-2016 [facility] WITH [facility] MEDICAL LEFT SIDE GROUP Z5181 ENCOUNTER 10-01-2016 MD LABS FOR THERAPEUTIC DRUG LEVEL MONITORING S67747 OTHER LONG 10-01-2016 MD LABS TERM CURRENT DRUG THERAPY K219 GASTRO-ESOP 09-01-2016 [facility] H REFLUX HEALTH DISEASE MEDICAL WITHOUT GROUP ESOPHAGITIS M6281 MUSCLE 09-01-2016 [facility] WEAKNESS [facility] GENERALIZED MEDICAL GROUP [id number] PAIN IN 08-11-2016 [facility] LEFT LEG PHYSICIANS ASSIST Z0000 ENCOUNTER 08-11-2016 GEN [facility]ULT [facility] MED EXAM HOSPITALS W/O ABNORMAL FIND M4806 SPINAL 07-30-2016 [facility] LUMBAR MEDICAL REGION GROUP Z6822 BODY MASS 06-09-2016 [facility] INDEX BMI HEALTH 22.0-22.9 MEDICAL ADULT GROUP K5909 OTHER 11-19-2015 [facility] CONSTIPATIO HEALTH N MEDICAL GROUP K921 MELENA 11-19-2015 [facility] [id number] STRAIN 10-11-2015 [facility] MUSCLE HEALTH FASCIA & MEDICAL TENDON LOW GROUP BACK INITIAL [id number] STRN UNS 10-11-2015 [facility] M&T SHLDR HEALTH UP ARM LEVL MEDICAL RT ARM GROUP INIT ENC R0789 OTHER CHEST 07-20-2015 [facility] R079 CHEST PAIN 07-20-2015 [place] [facility] Z720 TOBACCO USE 07-20-2015 [facility] 7242 LUMBAGO 09-30-2012 [facility] FAMILY MEDICINE P 8479 SPRAIN AND 09-30-2012 [facility] STRAIN OF FAMILY UNSPECIFIED MEDICINE P SITE OF BACK 7243 SCIATICA 09-20-2012 [facility] 7820 DISTURBANCE 09-20-2012 [facility] SENSATION 18064 OTHER 09-20-2012 [facility] DYSPNEA AND HOSPITAL RESPIRATORY ABNORMALITI ES V5869 LONG-TERM 09-20-2012 [facility] (CURRENT) HOSPITAL USE OF OTHER MEDICATIONS 9953 ALLERGY 09-15-2012 [facility] UNSPECIFIED EMERGENCY NOT SERVICES ELSEWHERE CLASSIFIED E9320 ADRENL 09-15-2012 [place] STEROIDS SERVICES CAUS ADVRS EFF TX USE 7295 PAIN IN 08-30-2012 [place] [facility] SOFT [facility] TISSUES OF [facility]OUNDAT[facility] LIMB 07094 ESOPHAGEAL 03-22-2012 [place] [facility] RE[facility]UX [facility] 86005 CHEST PAIN 03-22-2012 [place] [facility] UNSPECIFIED SERV [facility] 25818 ABDOMINAL 03-22-2012 [place] [facility] PAIN, SERV EPIGASTRIC [facility] 81009 OTHER 03-21-2012 [facility] PAIN 8460 SPRAIN AND 03-21-2012 [facility] STRAIN OF EMERGENCY LUMBOSACRAL SERVICES 8472 LUMBAR 03-21-2012 [facility] STRAIN 7244 THORACIC/JOAQUIN 02-13-2012 [facility] MBOSACRAL EMERGENCY NEURITIS/RA SERVICES DICULITIS UNSPEC 9597 INJURY 10-05-2010 [place] [facility] OTHER&UNSPE SERV CIFIED KNEE FOUNDATIO LEG ANKLE&FOOT 7062 SEBACEOUS 10-01-2010 [facility] 16574 UNSPECIFIED 09-28-2010 [place] [facility] ENTHESOPATH [facility] Y OF ANKLE AND TARSUS 05416 UNSPECIFIED 09-28-2010 [facility] 82793 OTHER 09-28-2010 [place] [facility] GANGLION&CY SERV ST OF FOUNDAT[facility] SYNOVIUM TENDON&BURS A 7822 LOCALIZED 09-28-2010 [place] [facility] SUPERFICIAL SERV SWELLING FOUNDAT[facility] MASS OR LUMP 13104 RECURRENT 09-02-2010 [place] [facility] DISLOCATION SERV OF [facility] SHOULDER JOINT 84138 PAIN IN 11-23-2009 [place] [facility] JOINT, SERV SHOULDER FOUNDAT[facility] REGION 77131 CLOSED 11-23-2009 [place] DISLOCATION EMERGENCY OF SERVICES SHOULDER ASSOCIATES UNSPECIFIED SITE V4589 OTHER 08-25-2009 [place] [facility] POSTSURGICA SERV L STATUS FOUNDATIO OTHER 7245 UNSPECIFIED 07-09-2009 [place] [facility] BACKACHE SERV [facility] V1588 PERSONAL 07-09-2009 [place] HISTORY OF HOSPITAL FALL 16861 CLOSED 06-21-2009 [facility] [place] ANTERIOR RADIOLOGY DISLOCATION OF HUMERUS E8499 UNSPECIFIED 06-10-[address] HOSP[address] OCCURRENCE E9270 OVEREXERTIO 06-10-2009 [facility] [place] N FROM HOSPITAL SUDDEN STRENUOUS MOVEMENT 5220 PULPITIS 03-13-2009 QU[facility] NARVAEZ [facility] N02 8470 NECK SPRAIN 01-14-2009 [place] [facility] AND STRAIN SERV [facility] 90863 CONTUSION 01-14-2009 [place] [facility]ICAL OF SHOULDER SERV REGION [facility] 08047 HEAD 01-14-2009 [place] [facility] INJURY, SERV UNSPECIFIED FOUNDATIO 67968 INJURY OF 01-14-2009 [place] [facility] FACE AND SERV NECK OTHER FOUNDATIO AND UNSPECIFIED 9592 INJURY 01-14-2009 [place] [facility] OTHER&UNSPE SERV CIFIED FOUNDATIO SHOULDER&UP PER ARM 9593 INJURY 01-14-2009 [place] [facility] OTHER&UNSPE SERV CIFIED FOUNDATIO ELBOW FOREARM&WRI ST E8809 ACCIDENTAL 01-14-2009 [facility] MED[facility] FALL ON OR SERV FROM OTHER FOUNDATIO STAIRS OR STEPS V5489 OTHER 01-07-2009 [facility] 64251 DEVELOPMENT 08-16-2008 [place] [facility] DISLOCATION IMAGING JOINT ASSOCIATES SHOULDER REGION E8490 PLACE OF 08-09-2008 [place] OCCURRENCE, MEDICAL [facility] 5210 DENTAL 07-03-2008 QUIN[facility] Escobar NARVAEZ [facility] N02 S16.1XXA STRAIN OF MUSCLE, FASCIA AND [...] HE CE 5 92 AL TA TH HI NO RI PH CH EN MO ND 7. 5- IN 32 OF 5 ES SI ON AL PH AR MA CY NI 00 05 06 28 28 00 BA Ac CO 53 -1 -0 .0 00 PT ti TI 61 0- 2- 00 00 IS ve NE 10 20 20 60 T 88 17 17 51 HE 21 8 18 AL TH MG /2 RI 4H CH R MO PA ND TC H IN OF ES SI ON AL PH AR MA CY OX 00 04 05 60 15 00 BA Ac YC 40 -1 -0 .0 00 PT ti OD 60 0- 5- 00 00 IS ve ON 52 20 20 20 T -A 20 17 17 03 HE CE 5 43 AL TA TH HI NO RI PH CH EN MO ND 7. 5- IN 32 OF 5 ES SI ON AL PH AR MA CY OX 65 03 03 45 11 00 BL Ac YC 16 -0 -3 .0 00 UE ti OD 20 8- 1- 00 00 GR ve ON 20 20 28 -A 75 17 17 81 S CE 0 64 FA TA HI HI LY NO PH PH EN AR MA 7. CY 5- 32 5 OX 65 02 03 45 11 00 BL Ac YC 16 -1 -1 .0 00 UE ti OD 20 4- 0- 00 00 GR ve ON 20 28 -A 75 17 17 61 S CE 0 14 FA TA HI HI LY NO PH PH EN AR MA 7. CY 5- 32 5 OX 65 01 02 60 15 00 BL Ac YC 16 -1 -1 .0 00 UE ti OD 20 6- 0- 00 00 GR ve ON 20 28 -A 75 17 17 37 S CE 0 57 FA TA HI HI LY NO PH PH EN AR MA 7. CY 5- 32 5 OX 65 12 01 60 15 00 BL Ac YC 16 -1 -1 .0 00 UE ti OD 20 5- 3- 00 00 GR ve ON 20 20 28 -A 75 16 17 11 S CE 0 95 FA TA HI HI LY NO PH PH EN AR MA 7. CY 5- 32 5 OX 00 05 05 16 4 CV 36 DA Ac YC 59 -0 -0 .0 S 28 LE ti OD 10 8- 8- 00 PH 91 ve ON 93 20 20 AR II -A 30 10 10 MA CE 1 CY TH TA # OM HI NO 02 PH 33 EN 2 7. [...] 20 77 09 09 FA RO 0 HI BE LY RT H DR UG PE 00 10 10 00 30 7 SO 32 AL Ac NI 78 -1 -2 .0 PE 52 LE ti CI 11 4- 2- 00 RS 73 N ve LL 65 20 20 BR IN 51 09 09 FA AN 0 HI DO VK LY N I 50 DR 0 UG MG TA BL ET ET 51 10 10 00 16 4 SO 32 AL Ac OD 67 -1 -2 .0 PE 52 LE ti OL 24 4- 2- 00 RS 74 N ve AC 01 20 20 BR 80 09 09 FA AN 40 1 HI DO 0 LY N MG I DR [...] N 30 09 09 FA 60 5 HI JA 0 LY ME MG S DR P TA UG BL ET 00 08 08 00 6. 2 SO 32 FL Ac 59 -1 -2 00 PE 00 AN ti 10 7- 7- 0 RS 78 AG ve 34 20 20 AN 90 09 09 FA 5 HI JA LY ME S DR P UG TR 65 04 05 01 20 5 SO 31 Ac AM 16 -1 -0 .0 PE 15 LL ti AD 20 7- 7- 00 RS 27 AF ve OL 62 20 20 LO 71 09 09 FA R HC 1 HI OS L LY IA [address] M MG UG TA BL ET TR 65 04 04 00 20 5 SO 31 Ac AM 16 -1 -2 .0 PE 15 LL ti AD 20 7- 3- 00 RS 27 AF ve OL 62 20 20 LO 71 09 09 FA R HC 1 HI OS L LY IA [address] [...] 80 09 09 FA AN 40 1 HI DO 0 LY N MG I TA [...] LI 30 09 09 FA N 5 HI DO 50 LY NA 0 LD MG [...] 80 09 09 FA AN 40 1 HI DO 0 LY N MG I TA UG BL ET PE 00 01 01 00 28 7 SO 30 AL Ac NI 78 -2 -3 .0 PE 37 LE ti CI 11 0- 0- 00 RS 26 N ve LL 65 20 20 BR IN 51 09 09 FA AN 0 HI DO VK LY N I 50 DR 0 UG MG TA BL ET Procedures Procedure DOS Code Location Performer Comment RADEX 26657 [place] [facility] SPINE 7 MEDICAL CERVICAL IMAGING 4 OR 5 ASS VIEWS DRUG TST G0483 LABS MD LABS DEFINITV 7 DR ID METH P DAY 22/MORE DR MALDONADO DRUG TEST 76146 LABS MD LABS PRSMV 7 INSTRMNT CHEMISTRY ANALYZERS MRI 89559 [facility] [place] RADMANESH SPINAL 6 RADIOLOGY SHA CANAL LUMBAR W/O CONTRAST MATERIAL MRI 99911 [facility] SPINAL 6 [facility] LUMBAR W/O CONTRAST MATERIAL INJECTION J1885 [facility] KILEY [address] [place] [address] [facility] TROMETHAM INE PER 15 MG THERAPEUT 94508 [facility] KILEY IC 6 HEALTH DUS PROPHYLAC MEDICAL TIC/DX GROUP INJECTION SUBQ/IM RADEX 51637 [facility] [place] SCALF JEREMIAH SPINE 6 RADIOLOGY LUMBSCRL COMPL W/BENDING VIEWS MIN [address] [place] [address] [facility] FREE 6 [facility] [place] [address] [facility] THYROID 6 [facility] STIMULATI HOSP HOSP NG HORMONE TSH COMPREHEN 80271 [facility] SIVE 6 [facility] METABOLIC HOSP HOSP PANEL 25 87292 [facility] HYDROXY 6 [facility] INCLUDES HOSP HOSP FRACTIONS IF PERFORMED RADEX 58174 [facility] SPINE 6 [facility] LUMBOSACR [facility] NAMED [facility] AL ONLY BENDING 2/3 VIEWS BLOOD 65527 [facility] COUNT 6 [facility] COMPLETE HOSP HOSP AUTO&AUTO DIFRNTL WBC RADEX 95920 [facility] SHOULDER 6 [facility] MEDICAL MEDICAL MINIMUM 2 GROUP GROUP VIEWS RADEX 28580 [facility] SPINE 6 [facility] MEDICAL AL 2/3 GROUP GROUP VIEWS COMPREHEN 59154 [facility] SIVE 6 Y [facility]OSPITAL PANEL ECG 32797 [facility] ROUTINE 6 Y Y ECG HOSPITAL HOSPITAL W/LEAST 12 LDS TRCG ONLY W/O I&R FIBRIN 44812 [facility] DGRADJ 6 Y Y PRODUCTS HOSPITAL HOSPITAL D-DIMER QUANTITAT VERA ECG 64313 [facility] DICIRO ROUTINE 6 CHICA DOM ECG EMERGENCY W/LEAST PHYS 12 LDS I&[place] [address] [facility] TROPONIN 6 Y Y QUANTITAT HOSPITAL HOSPITAL VERA BLOOD 97780 [facility]IV[facility] COUNT 6 Y Y COMPLETE HOSPITAL HOSPITAL AUTO&AUTO DIFRNTL WBC RADIOLOGI 32488 [facility] C EXAM 6 Y Y CHEST 2 HOSPITAL HOSPITAL VIEWS FRONTAL&L ATERAL ECG 69837 [facility] ROUTINE 3 MEDICAL OTTO ECG SERV W/LEAST FOUNDATIO 12 LDS I&R ONLY ECG 46690 [place] SIEGEL ROUTINE 2 MEDICAL NAN ECG SERV W/LEAST FOUNDATIO 12 LDS I&R ONLY INJECTION J1885 [facility] 2 Y Y KETOROLAC [facility] TROMETHAM INE PER 15 MG INJ J2930 [facility] METHYLPRD 2 Y Y NISOLONE [facility] SODIUM SUCCNAT TO 125 MG THERAPEUT 39546 [facility] IC 2 Y Y PROPHYLAC [facility] TIC/DX INJECTION SUBQ/IM RADEX 83023 [place] AYOOB AND FOOT 1 MEDICAL COMPLETE SERV MINIMUM 3 FOUNDATIO VIEWS RADEX 31171 [place] FOOT 1 MEDICAL SHU COMPLETE SERV MINIMUM 3 FOUNDATIO VIEWS RADEX 87954 [place] AYOOB AND SHOULDER 1 MEDICAL COMPLETE SERV MINIMUM 2 FOUNDATIO VIEWS RADEX 30242 [place] ZAMZAM, SHOULDER 0 MEDICAL HARIGOVIN COMPLETE SERV DA R MINIMUM 2 FOUNDATIO VIEWS NONINVASI 59038 [facility] VE 0 Y Y EAR/PULSE [facility] OXIMETRY SINGLE DETER INJECTION J1885 [facility] 0 Y Y [facility] TROMETHAM INE PER 15 MG THER 41545 [facility] PROPH/DX 0 Y Y NJX IV [facility] HOSPITAL PUSH SINGLE/1S T SBST/DRUG THERAPEUT 57636 [facility] IC 0 Y Y PROPHYLAC [facility] TIC/DX INJECTION SUBQ/IM RADEX 09181 [place] DENISE MILLICENT SHOULDER 0 MEDICAL COMPLETE SERV MINIMUM 2 FOUNDATIO VIEWS INJECTION J1885 [facility] 0 Y Y KETOROLAC [facility] TROMETHAM INE PER 15 MG RADEX 26877 [facility] [place] AURE, SHOULDER 0 RADIOLOGY RAJIV G COMPLETE MINIMUM 2 VIEWS RADEX 85947 [facility] MO SHOULDER 0 CO CO [facility] MINIMUM 2 [place] [address] [facility] RAGLAND SHOULDER 0 CO , [facility] W/MANIPUL ATION W/O ANES DEEP 200 D9220 QUIN[facility] FLORES, SEDATION/ 9 NARVAEZ [facility] ANESTHESI N02 A-1ST [address] 08-23-200 07857 [facility] HEAD/BRAI 9 Y Y N W/O HOSPITAL HOSPITAL CONTRAST MATERIAL INJECTION J2405 [facility] 9 Y [facility] H[facility] PER 1 MG RADEX 76352 [facility] SHOULDER 9 Y Y [address] [place] [address] [place] APONTE, CERVICAL 9 MEDICAL KALEB N SPINE W/O SERV CONTRAST FOUNDATIO MATERIAL RADEX 33380 [facility] ELBOW 9 Y Y COMPLETE [facility] MINIMUM 3 VIEWS THER 03469 [facility] PROPH/DX 9 Y Y NJX IV HOSPITAL HOSPITAL PUSH SINGLE/1S T SBST/DRUG INJECTION J1170 [facility] 9 Y Y HYDROMORP [facility] OSCAR UP TO 4 MG RADEX 83765 [facility] SHOULDER 9 Y Y COMPLETE [facility] MINIMUM 2 VIEWS NONINVASI 93236 [facility] VE 9 Y Y EAR/PULSE [facility] HOSPITAL OXIMETRY SINGLE DETER THERAPEUT 88147 [facility] IC 9 Y Y INJECTION [facility] IV PUSH EACH NEW DRUG CLOSED 7971 NANCY CRUZ REDUCTION 9 MEM HOSP MEM HOSP OF INC INC DISLOCATI ON OF SHOULDER RADEX 81322 NANCY CRUZ SHOULDER 9 MEM HOSP MEM HOSP COMPLETE INC [place] MINIMUM [place] [address] [facility], SHOULDER 9 EMERGENCY KALEB P DISLC SERVICES W/MANIPUL ATION W/[place] [address] [facility] SHOULDER 9 , SHANNON M , SHANNON M DISLC W/MANIPUL ATION W/O ANES RADEX 69442 [facility] [place] SHOULDER 9 CO CO COMPLETE [facility] HOSPITAL MINIMUM 2 VIEWS RADEX 98846 [place] ROS[place], SHOULDER 9 MEDICAL WILLIE P COMPLETE IMAGING MINIMUM 2 ASSOCIATE VIEWS S RADEX 09154 [place] ROSARIO, SHOULDER 9 MEDICAL WILLIE P 1 VIEW IMAGING ASSOCIATE S CLOSED 7971 NANCY CRUZ REDUCTION 9 MEM HOSP [facility] OF INC [place] [address] [place] LAL, SHOULDER 9 EMERGENCY KALEB P DISLC SERVICES W/MANIPUL ATION W/[place] [address] [place] YUN, SHOULDER 9 EMERGENCY JONAH DISLC SERVICES O W/MANIPUL ATION W/O ASSOCIATE JOSH Tineo RADEX 17461 ANNI PONCE, SHOULDER 9 MEDICAL WILLIE P 1 VIEW IMAGING ASSOCIATE S CLOSED 7971 NANCY CRUZ REDUCTION 9 MEM HOSP MEM HOSP OF INC INC DISLOCATI ON OF SHOULDER RADEX 65202 NANCY CRUZ SHOULDER 9 MEM HOSP MEM HOSP COMPLETE INC INC MINIMUM 2 VIEWS ORTHOPANT 26491 [facility] [place] OGRAM 9 SOLANGE Hernandez IIIPSC N02 DEEP D9220 [facility] [place] SEDATION/ 9 SOLANGE Hernandez GENERAL IIIPSC ANESTHESI N02 A-1ST 30 MINUTES Encounters Encounter Start End Date Code Location Performer Type Date EMERGENCY 79063 KAMI KELLER, 7 7 PHYSICIAN JR PERALTA S, PLLC T VISIT HIGH/URGE NT SEVERITY OFFICE 21682 [facility] KIMBLE CONSULTAT 7 7 MEDICAL ASTELLANO ION SERV S NEW/ESTAB FOUNDATIO PATIENT N 40 MIN OFFICE 69908 [facility] OUTPATIEN 7 7 HEALTHCAR T VISIT 5 E MINUTES [facility]OSPITALS [facility] - 7 7 HEALTHCAR OUTPATIEN E T HOSPITALS OFFICE 89979 [facility] ESTEBAN OUTPATIEN 7 7 HEALTH T VISIT MEDICAL 25 GROUP MINUTES OFFICE 19384 [facility] KILEY OUTPATIEN 7 7 HEALTH T VISIT MEDICAL 15 GROUP MINUTES HOSPITAL [facility] - 7 7 HEALTHCAR OUTPATIEN E T HOSPITALS OFFICE 26703 DAV[facility] CONSULTAT 7 7 [place] ION PHYSICIAN NEW/ESTAB S ASSIST PATIENT 40 MIN OFFICE 20150 [facility] OUTPATIEN 7 7 HEALTHCAR T VISIT 5 E MINUTES HOSPITALS OFFICE 07284 [facility] OUTPATIEN 7 7 HEALTH T VISIT MEDICAL 15 GROUP MINUTES OFFICE 10225 [facility] OUTPATIEN 7 7 HEALTH T VISIT MEDICAL 15 GROUP MINUTES OFFICE 49019 [facility] OUTPATIEN 7 7 HEALTH T VISIT MEDICAL 25 GROUP MINUTES OFFICE 86352 [facility] OUTPATIEN 6 6 HEALTH DUS T VISIT MEDICAL 15 GROUP MINUTES OFFICE 82532 [facility] OUTPATIEN 6 6 HEALTH DUS T VISIT MEDICAL 15 GROUP MINUTES OFFICE 16587 [facility] OUTPATIEN 6 6 HEALTH DUS T VISIT MEDICAL 25 GROUP MINUTES OFFICE 68780 [facility] ESTEBAN OUTPATIEN 6 6 HEALTH BARBARA T VISIT MEDICAL 15 GROUP MINUTES OFFICE 62826 [facility] OUTPATIEN 6 6 HEALTH DUS T VISIT MEDICAL 15 GROUP MINUTES HOSPITAL [facility] - 6 6 HEALTH OUTPATIEN SHERIDAN T OFFICE 56958 [facility] OUTPATIEN 6 6 HEALTH DUS T VISIT MEDICAL 25 GROUP MINUTES OFFICE 83582 [facility] OUTPATIEN 6 6 HEALTH DUS T VISIT MEDICAL 15 GROUP MINUTES OFFICE 85990 [facility] OUTPATIEN 6 6 HEALTH DUS T VISIT MEDICAL 15 GROUP MINUTES OFFICE 92860 [facility] OUTPATIEN 6 6 HEALTH DUS T VISIT MEDICAL 15 GROUP MINUTES HOSPITAL CENTRAL - 6 6 [facility] OUTPATIEN HOSP T OFFICE 14127 [facility] OUTPATIEN 6 6 HEALTH DUS T NEW 30 MEDICAL MINUTES GROUP OFFICE 09162 [facility] OUTPATIEN 6 6 HEALTH T NEW 45 MEDICAL MINUTES GROUP EMERGENCY 77109 UNIVERSIT 6 6 Y [facility] HOSPITAL T VISIT HIGH/URGE NT SEVERITY [facility]OSPITAL [facility] 56455 [facility] DEPT 6 6 [facility] DOM VISIT EMERGENCY HIGH PHYS SEVERITY& THREAT FUNCJ OFFICE 19892 [facility] 3 3 [place] FAMILY ELL T NEW 30 MEDICINE MINUTES P EMERGENCY 82964 [facility] KHANG W 3 3 [place] DEPARTMEN EMERGENCY T VISIT PHYS MODERATE SEVERITY [facility]OSPITAL [facility] 3 3 [facility] 11243 [place] MENDEZ 3 3 EMERGENCY MAR DEPARTMEN SERVICES T VISIT HIGH/URGE NT SEVERITY EMERGENCY 38418 [place] NAGY 3 3 EMERGENCY DEV DEPARTMEN SERVICES T VISIT MODERATE SEVERITY EMERGENCY 52589 MER PINO FERNANDA 3 3 MEDICAL DEPARTMEN SERV T VISIT FOUNDATIO MODERATE SEVERITY EMERGENCY 93951 MRE GODFREY 2 2 MEDICAL MAT DEPARTMEN SERV T VISIT FOUNDATIO HIGH/URGE NT SEVERITY HOSPITAL [facility] - 2 [facility] 60048 [place]IA WYMAN 2 2 EMERGENCY RYA DEPARTMEN SERVICES T VISIT HIGH/URGE NT SEVERITY EMERGENCY 41778 UNIVERSIT 2 2 Y [facility] T VISIT LOW/MODER SEVERITY EMERGENCY 94383 UNIVERSIT 2 2 Y [facility] T VISIT MODERATE SEVERITY HOSPITAL [facility] - 2 [facility] 30236 UNIVERSIT 1 1 Y [facility] T VISIT LOW/MODER SEVERITY HOSPITAL [facility] - 1 [facility] 07554 UNIVERSIT 1 1 Y [facility] T VISIT LOW/MODER SEVERITY HOSPITAL [facility] - 1 [facility] 07460 MER REN JR 1 1 MEDICAL LUNA DEPARTMEN SERV T VISIT FOUNDATIO MODERATE SEVERITY EMERGENCY 85202 AP[place]IA RODRIGUEZCheyanne, 0 0 EMERGENCY JOHN DEPARTMEN SERVICES A T VISIT MODERATE ASSOCIATE SEVERITY S EMERGENCY 21437 [place]IA MENENDEZ T 0 0 [facility] MODERATE SEVERITY H[facility] - 0 0 [facility] T EMERGENCY 14076 UNIVERSIT 0 0 Y [facility] T VISIT LOW/MODER SEVERITY HOSPITAL [facility] - 0 [facility] 65076 MER DE LA ROSA, 0 0 MEDICAL THA T DEPARTMEN SERV T VISIT FOUNDATIO MODERATE SEVERITY HOSPITAL [facility] 0 [facility] 44520 UNIVERSIT 0 0 Y [facility] T VISIT LOW/MODER SEVERITY EMERGENCY 93271 MER DE LA ROSA 0 0 MEDICAL SET DEPARTMEN SERV T VISIT FOUNDATIO MODERATE SEVERITY EMERGENCY 42027 CHELY 0 0 CO [facility] T VISIT LIMITED/M [facility] HOSPITAL CHELY - 0 0 [facility] T EMERGENCY 86735 UNIVERSIT 9 9 Y [facility] T VISIT HIGH/URGE NT SEVERITY HOSPITAL [facility] - [facility] EMERGENCY 71024 APOLONIA LAL, 9 9 EMERGENCY KALEB P DEPARTMEN SERVICES T VISIT HIGH/URGE ASSOCIATE NT S SEVERITY EMERGENCY 13190 NANCY 9 9 [facility] T VISIT MODERATE SEVERITY HOSPITAL NANCY - 9 [facility] 9 9 [facility] T EMERGENCY [address] CHELY 9 9 [facility] T V[facility]IT LIMITED/M [facility] NANCY - 9 9 [facility] [address] [place] LAL, 9 9 EMERGENCY [facility] T VISIT MODERATE ASSOCIATE SEVERITY S EMERGENCY 68081 NANCY 9 9 [facility] T VISIT LOW/MODER SEVERITY HOSPITAL NANCY - 9 9 [facility] EMERGENCY 68027 NANCY 9 9 [facility] [place] T VISIT HIGH/URGE NT SEVERITY OFFICE [id number] MAHENDRA STERLING 9 9 [place] [facility] N[facility]
--- OUTSIDE RECORDS SUMMARY | 2016-12-19 00:10 | External Medical Summary Rpt ---
Demographics Preferred Language Spanish Marital Status Unknown Anglican Affiliation Unknown Race Unknown Ethnic Group Unknown Author Author , HARRIET LARIOS Address Unknown Phone Immunization Unable to retrieve immunization data due to connection failure with Immunization Registry. Please try again later.
--- OUTSIDE RECORDS SUMMARY | 2016-12-19 00:10 | External Medical Summary Rpt ---
Author Author , HARRIET Ball HARRIET Address Unknown Phone [email or web address] Care Team Providers Care Digital Marketing Assistant Name Role Phone AYOOB AND, AYOOB AND Unavailable Unavailable [facility] Un[facility] Unavailable [facility] Unavailable Unavailable [facility] COLINDRES, COLINDRES Unavailable Unavailable [facility], Unavailable Unavailable [facility], Unavailable Unavailable [facility] ZAMZAM, HARIGOVINDA Unavailable Unavailable R, ZAMZAM, HARIGOVINDA R [facility] # [id number], Unavailable Unavailable [facility] # [id number] GEMMA T, GEMMA T Unavailable Unavailable GODFREY MAT, GODFREY Unavailable Unavailable MAT DELAIR, DELAIR Unavailable Unavailable PINO FERNANDA, PINO FERNANDA Unavailable Unavailable KILEY, KILEY Unavailable Unavailable KILEY DUS, KILEY Unavailable Unavailable DUS DICIRO DOM, DICIRO Unavailable Unavailable DOM [facility] Un[facility] [place] [place] FARAGASSO DEV, Unavailable Unavailable FARAGASSO DEV KALEB LAL, Unavailable Unavailable KALEB LAL SIEGEL MARIOLA, SIEGEL Unavailable Unavailable MARIOLA KELLER JR, FULLER, Unavailable Unavailable AURE RAJIV G, Unavailable Unavailable AURE, RAJIV G [facility] Un[facility], [facility] Unavailable Unavailable [facility], [facility] DENISE MILLICENT, DENISE MILLICENT Unavailable Unavailable VERNON WALKER KING, Unavailable Unavailable TUSHAR ORTEGA, Unavailable Unavailable TUSHAR HENLEY [facility], [facility] Unavailable Unavailable [facility] Unavailable Unavailable SERVICES, [facility] RASHARD CALLOWAY, Unavailable Unavailable RASHARD CALLOWAY MD LABS, LABS Unavailable Unavailable LABS, LABS Unavailable Unavailable WILLIE PONCE, Unavailable Unavailable WILLIE PONCE ROBERT, Unavailable Unavailable SHANNEN FLORES [facility], Unavailable Unavailable [facility], Unavailable Unavailable PLL[facility], [facility] RADMANESH SHA, Unavailable Unavailable RADMANESH SHA [facility], [facility] Unavailable Unavailable [facility] MEGHAN RAGLAND, Unavailable Unavailable MEGHAN RAGLAND [id number], [facility] Unavailable Unavailable [id number] MENDEZ MAR, MENDEZ Unavailable Unavailable MAR SCALF JEREMIAH, SCALF JEREMIAH Unavailable Unavailable SCHWARTZCASSI, ALMA Unavailable Unavailable G, ALMA LAGOS G JOSE GARCIA Unavailable Unavailable ELL SOKAN, JONAH O, Unavailable Unavailable SOKAN, JONAH O [facility], Unavailable Unavailable [facility], Unavailable Unavailable [facility] WYMAN RYA, WYMAN Unavailable Unavailable RYA STEARLEY SET, Unavailable Unavailable STEARLEY SET STEARLEY, THA T, Unavailable Unavailable STEARLEY, THA T ESTEBAN, ESTEBAN Unavailable Unavailable ESTEBAN BARBARA, ESTEBAN Unavailable Unavailable BARBARA SWINEY, JOHN A, Unavailable Unavailable SWINEY, JOHN A JODIE EMERALD, JODIE Unavailable Unavailable EMERALD [facility] Unavailable Unavailable HOSPITALS, [facility] Unavailable Unavailable MEDICINE P, [facility]available Unavailable ASSIST, [facility], Unavailable Unavailable [facility], Unavailable Unavailable 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 M5416 RADICULOPAT 10-01-2016 [facility] M5442 LUMBAGO 10-01-2016 [facility] WITH [facility] MEDICAL LEFT SIDE GROUP Z5181 ENCOUNTER 10-01-2016 MD LABS FOR THERAPEUTIC DRUG LEVEL MONITORING G34492 OTHER LONG 10-01-2016 MD LABS TERM CURRENT DRUG THERAPY K219 GASTRO-ESOP 09-01-2016 [facility] H REFLUX HEALTH DISEASE MEDICAL WITHOUT GROUP ESOPHAGITIS M6281 MUSCLE 09-01-2016 [facility] GENERALIZED MEDICAL GROUP [id number] PAIN IN 08-11-2016 [facility] LEFT LEG PHYSICIANS ASSIST Z0000 ENCOUNTER 08-11-2016 [facility] MED EXAM HOSPITALS W/O ABNORMAL FIND M4806 SPINAL 07-30-2016 [facility] LUMBAR MEDICAL REGION GROUP Z6822 BODY MASS 06-09-2016 [facility] INDEX BMI HEALTH 22.0-22.9 MEDICAL ADULT GROUP K5909 OTHER 11-19-2015 [facility] CONSTIPATIO HEALTH N MEDICAL GROUP K921 MELENA 11-19-2015 [facility] [id number] STRAIN 10-11-2015 [facility] MUSCLE HEALTH FASCIA & MEDICAL TENDON LOW GROUP BACK INITIAL [id number] STRN UNS 10-11-2015 [facility] M&T SHLDR HEALTH UP ARM LEVL MEDICAL RT ARM GROUP INIT ENC R0789 OTHER CHEST 07-20-[address] [facility] R079 CHEST PAIN 07-20-2015 [place] [facility] U[facility]PECIFIED SERV [facility]ATION Z720 TOBACCO USE 07-20-2015 [facility] 7242 LUMBAGO 09-30-2012 [facility] MEDICINE P 8479 SPRAIN AND 09-30-2012 [facility] STRAIN [facility] UNSPECIFIED MEDICINE P SITE OF BACK 7243 SCIATICA 09-20-2012 [facility] 7820 DISTURBANCE 09-20-2012 [facility] SENSATION 05589 OTHER 09-20-2012 [facility] DYSPNEA AND HOSPITAL RESPIRATORY ABNORMALITI ES V5869 LONG-TERM 09-20-2012 [facility] (CURRENT) HOSPITAL USE OF OTHER MEDICATIONS 9953 ALLERGY 09-15-2012 [facility] UNSPECIFIED [facility]ERGENCY NOT SERVICES ELSEWHERE CLASSIFIED E9320 ADRENL 09-15-2012 [facility] STEROIDS SERVICES CAUS ADVRS EFF TX USE 7295 PAIN IN 08-30-2012 [place] [facility] SOFT SERV TISSUES OF FOUNDATIO LIMB 79847 ESOPHAGEAL 03-22-2012 [place] [facility] REFLUX SERV [facility] 63252 CHEST PAIN 03-22-2012 [place] [facility] UNSPECIFIED SERV [facility] 85674 ABDOMINAL 03-22-2012 [place] [facility] PAIN, SERV EPIGASTRIC [facility]OUND[facility] 29027 OTHER 03-21-2012 [facility] PAIN 8460 SPRAIN AND 03-21-2012 [facility] STRAIN OF EMERGENCY LUMBOSACRAL SERVICES 8472 LUMBAR 03-21-2012 [facility] STRAIN 7244 THORACIC/JOAQUIN 02-13-2012 [facility] MBOSACRAL [facility]ERGENCY NEURITIS/RA SERVICES DICULITIS UNSPEC 9597 INJURY 10-05-2010 [place] [facility] OTHER&UNSPE SERV CIFIED KNEE FOUNDATIO LEG ANKLE&FOOT 7062 SEBACEOUS 10-01-2010 [facility] 20433 UNSPECIFIED 09-28-2010 [place] [facility] ENTHESOPATH [facility] Y OF ANKLE AND TARSUS 31676 UNSPECIFIED 09-28-2010 [facility] 26618 OTHER 09-28-2010 [place] [facility] GANGLION&CY SERV ST OF FOUNDATIO SYNOVIUM TENDON&BURS A 7822 LOCALIZED 09-28-2010 [place] [facility] SUPERFICIAL SERV SWELLING FOUNDATIO MASS OR LUMP 95468 RECURRENT 09-02-2010 [place] [facility] DISLOCATION SERV OF FOUND[facility] SHOULDER JOINT 76249 PAIN IN 11-23-2009 [place] [facility] JOINT, SERV SHOULDER FOUNDAT[facility] REGION 93798 CLOSED 11-23-2009 [facility] DIS[facility]ATION EMERGENCY OF SERVICES SHOULDER ASSOCIATES UNSPECIFIED SITE V4589 OTHER 08-25-2009 [place] [facility] POSTSURGICA SERV L STATUS FOUNDATIO OTHER 7245 UNSPECIFIED 07-09-2009 [place] [facility] BACKACHE SERV [facility] V1588 PERSONAL 07-09-2009 [facility] HISTORY OF HOSPITAL FALL 56554 CLOSED 06-21-2009 [facility] [place] ANTERIOR RADIOLOGY DISLOCATION OF HUMERUS E8499 UNSPECIFIED 06-10-[address] [facility] OCCURRENCE E9270 OVEREXERTIO 06-10-2009 [facility] N FROM HOSPITAL SUDDEN STRENUOUS MOVEMENT 5220 PULPITIS 03-13-2009 [facility] N02 8470 NECK SPRAIN 01-14-2009 [place] [facility] STRAIN SERV [facility] 37700 CONTUSION 01-14-2009 [place] [facility] OF SHOULDER SERV REGION [facility] 13847 HEAD 01-14-2009 [place] [facility] INJURY, SERV UNSPECIFIED FOUNDATIO 73902 INJURY OF 01-14-2009 [place] [facility] FACE AND SERV NECK OTHER FOUNDATIO AND UNSPECIFIED 9592 INJURY 01-14-2009 [place] [facility] OTHER&UNSPE SERV CIFIED FOUNDATIO SHOULDER&UP PER ARM 9593 INJURY 01-14-2009 [place] [facility] OTHER&UNSPE SERV CIFIED FOUNDATIO ELBOW FOREARM&WRI ST E8809 ACCIDENTAL 01-14-2009 [place] [facility] FALL ON OR SERV FROM OTHER FOUND[facility]IO STAIRS OR STEPS V5489 OTHER 01-07-2009 [facility] 94444 DEVELOPMENT 08-16-2008 [place] [facility] DISLOCATION [facility]AG[facility] JOINT [facility] SHOULDER REGION E8490 PLACE OF 08-09-2008 [place] [facility]CCURRENCE[facility] 5210 DENTAL 07-03-2008 [facility] Luz NARVAEZ CARIES IIIPSC N02 Medications Na ND Rx Da Fi Fi [...] HE CE 5 92 AL TA TH AK NO RI PH CH EN MO ND 7. 5- CT 32 OF 5 ES SI ON AL PH AR MA CY NI 00 05 06 28 28 00 BA Ac CO 53 -1 -0 .0 00 PT ti TI 61 0- 2- 00 00 IS ve NE 10 20 20 60 T 88 17 17 51 HE 21 8 18 AL TH MG /2 RI 4H CH R MO PA ND TC H CT OF ES SI ON AL PH AR MA CY OX 00 04 05 60 15 00 BA Ac YC 40 -1 -0 .0 00 PT ti OD 60 0- 5- 00 00 IS ve ON 52 20 20 20 T -A 20 17 17 03 HE CE 5 43 AL TA TH AK NO RI PH CH EN MO ND 7. 5- CT 32 OF 5 ES SI ON AL PH AR MA CY OX 65 03 03 45 11 00 BL Ac YC 16 -0 -3 .0 00 UE ti OD 20 8- 1- 00 00 GR ve ON 20 20 28 -A 75 17 17 81 S CE 0 64 FA TA AK AK LY NO PH PH EN AR MA 7. CY 5- 32 5 OX 65 02 03 45 11 00 BL Ac YC 16 -1 -1 .0 00 UE ti OD 20 4- 0- 00 00 GR ve ON 20 28 -A 75 17 17 61 S CE 0 14 FA TA AK AK LY NO PH PH EN AR MA 7. CY 5- 32 5 OX 65 01 02 60 15 00 BL Ac YC 16 -1 -1 .0 00 UE ti OD 20 6- 0- 00 00 GR ve ON 20 28 -A 75 17 17 37 S CE 0 57 FA TA AK AK LY NO PH PH EN AR MA 7. CY 5- 32 5 OX 65 12 01 60 15 00 BL Ac YC 16 -1 -1 .0 00 UE ti OD 20 5- 3- 00 00 GR ve ON 20 28 -A 75 16 17 11 S CE 0 95 FA TA AK AK LY NO PH PH EN AR MA 7. CY 5- 32 5 OX 00 05 05 16 4 CV 36 DA Ac YC 59 -0 -0 .0 S 28 LE ti OD 10 8- 8- 00 PH 91 ve ON 93 20 20 AR II -A 30 10 10 MA CE 1 CY TH TA # OM AK NO 02 PH 33 EN 2 7. [...] 20 77 09 09 FA RO 0 AK BE LY RT H DR UG PE 00 10 10 00 30 7 SO 32 AL Ac NI 78 -1 -2 .0 PE 52 LE ti CI 11 4- 2- 00 RS 73 N ve LL 65 20 20 BR IN 51 09 09 FA AN 0 AK DO VK LY N I 50 DR 0 UG MG TA BL ET ET 51 10 10 00 16 4 SO 32 AL Ac OD 67 -1 -2 .0 PE 52 LE ti OL 24 4- 2- 00 RS 74 N ve AC 01 20 20 BR 80 09 09 FA AN 40 1 AK DO 0 LY N MG I DR TA UG BL ET 00 08 09 00 16 2 RI 28 No Ac 40 -2 -1 .0 TE 34 t ti 60 4- 0- 00 5 Av ve 35 20 20 AI ai 70 09 09 D la 5 #7 bl 89 e 2 00 08 08 00 6. 2 SO 32 FL Ac 59 -1 -2 00 PE 00 AN ti 10 7- 7- 0 RS 78 AG ve 34 20 20 AN 90 09 09 FA 5 AK JA LY ME S DR P UG IB 55 08 08 00 40 13 SO 32 FL Ac UP 11 -1 -2 .0 PE 00 AN ti RO 10 7- 7- 00 RS 77 AG ve FE 68 20 20 AN N 30 09 09 FA 60 5 AK JA 0 LY ME MG S DR P TA UG BL ET TR 65 04 05 01 20 5 SO 31 Ac AM 16 -1 -0 .0 PE 15 LL ti AD 20 7- 7- 00 RS 27 AF ve OL 62 20 20 LO 71 09 09 FA R HC 1 AK OS L LY IA [address] M MG UG TA BL ET TR 65 04 04 00 20 5 SO 31 Ac AM 16 -1 -2 .0 PE 15 LL ti AD 20 7- 3- 00 RS 27 AF ve OL 62 20 20 LO 71 09 09 FA R HC 1 AK OS L LY IA [address] [...] 80 09 09 FA AN 40 1 AK DO 0 LY N MG I [address] MAHENDRA HILL BL ET 60 02 02 00 24 4 CA 94 MC Ac 95 -0 -2 .0 RR 01 LA ti 10 9- 6- 00 IN 94 UR ve 79 20 20 GT IN 77 [address] RAY HILL LD R 49 02 02 00 30 7 CA 94 MC Ac 88 -0 -2 .0 RR 01 LA ti 40 9- 6- 00 IN 93 UR ve 77 20 20 GT IN 90 [address] RAY HILL LD R AM 00 02 02 00 21 7 SO 30 MC Ac OX 78 -1 -2 .0 PE 53 LA ti IC 12 0- 6- 00 RS 13 UR ve IL 61 20 20 IN LI 30 09 09 FA N 5 AK DO 50 LY NA [address] R UG CA PS UL E PE 00 01 01 00 28 7 SO 30 AL Ac NI 78 -2 -3 .0 PE 37 LE ti CI 11 0- 0- 00 RS 26 N ve LL 65 20 20 BR IN 51 09 09 FA AN 0 AK DO VK LY N I 50 DR 0 UG MG TA BL ET ET 51 01 01 00 16 4 SO 30 AL Ac OD 67 -2 -3 .0 PE 37 LE ti OL 24 0- 0- 00 RS 27 N ve AC 01 20 20 BR 80 09 09 FA AN 40 1 AK DO 0 LY N MG I DR MAHENDRA HILL BL ET Procedures Procedure DOS Code Location Performer Comment RADEX 19634 [place] [facility] SPINE 7 MEDICAL CERVICAL IMAGING 4 OR 5 ASS VIEWS DRUG TST G0483 LABS MD LABS DEFINITV 7 ID METH P DAY 22/MORE DR MALDONADO DRUG TEST 15643 MD LABS MD LABS PRSMV 7 INSTRMNT CHEMISTRY [place] [address]18 [facility] [place] RADMANESH SPINAL 6 RADIOLOGY SHA CANAL LUMBAR W/O CONTRAST MATERIAL MRI 04538 [facility] SPINAL 6 HEALTH HEALTH CANAL [facility] LUMBAR W/O CONTRAST MATERIAL INJECTION J1885 [facility] KILEY 6 HEALTH DUS KETOROLAC MEDICAL GROUP TROMETHAM INE PER 15 MG THERAPEUT 90006 [facility] IC 6 HEALTH DUS PROPHYLAC MEDICAL TIC/DX GROUP INJECTION SUBQ/IM RADEX 53429 [facility] [place] SCALF JEREMAIH SPINE 6 RADIOLOGY LUMBSCRL COMPL W/BENDING VIEWS MIN 6 25 26212 [facility] HYDROXY 6 [facility] INCLUDES HOSP HOSP FRACTIONS IF PERFORMED RADEX 25241 [facility] SPINE 6 [facility] AL ONLY BENDING 2/3 VIEWS BLOOD 87422 [facility] COUNT 6 [facility] COMPLETE HOSP HOSP AUTO&AUTO DIFRNTL WBC COMPREHEN 11036 [facility] SIVE 6 [facility] [place] [address] [facility] FREE 6 [facility] [place] [address] [facility] THYROID 6 [facility] STIMULATI HOSP HOSP NG HORMONE TSH RADEX 97648 [facility] SPINE 6 [facility] MEDICAL MEDICAL AL 2/3 GROUP GROUP VIEWS RADEX 62461 [facility] SHOULDER 6 [facility]ICAL MINIMUM 2 [place] [address] [facility] TROPONIN 6 Y Y QUANTITAT [facility] VERA FIBRIN 00977 [facility] DGRADJ 6 Y Y PRODUCTS HOSPITAL HOSPITAL D-DIMER QUANTITAT VERA COMPREHEN 47978 [facility] SIV 6 Y Y METABOLIC HOSPITAL HOSPITAL PANEL BLOOD 16325 [facility] COUNT 6 Y Y COMPLETE HOSPITAL HOSPITAL AUTO&AUTO DIFRNTL WBC ECG 88534 [facility] ROUTINE 6 Y Y ECG HOSPITAL HOSPITAL W/LEAST 12 LDS TRCG ONLY W/O I&R RADIOLOGI 76214 [place] JODIE C EXAM 6 MEDICAL EMERALD CHEST 2 SERV VIEWS FOUNDATIO FRONTAL&L N ATERAL ECG 11639 [place] SIEGEL ROUTINE 6 MEDICAL NAN ECG SERV W/LEAST FOUNDATIO 12 LDS N I&R ONLY ECG 96461 [place] WYATT CHI ROUTINE 3 MEDICAL ECG SERV W/LEAST FOUNDATIO 12 LDS I&R ONLY ECG 09860 [place] SIE[place]EL ROUTINE 2 MEDICAL NAN ECG SERV W/LEAST FOUNDATIO 12 LDS I&R ONLY INJ J2930 [facility] Y NISOLONE [facility] SODIUM SUCCNAT TO 125 MG THERAPEUT 01190 [facility] IC 2 Y Y PROPHYLAC [facility] TIC/DX INJECTION SUBQ/IM INJECTION J1885 [facility] 2 Y Y KETOROLAC [facility] TROMETHAM INE PER 15 MG RADEX 74059 [place] AYOOB AND FOOT 1 MEDICAL COMPLETE SERV MINIMUM 3 FOUNDATIO VIEWS RADEX 27835 [place] REXROAD FOOT 1 MEDICAL SHU COMPLETE SERV MINIMUM 3 FOUNDATIO VIEWS RADEX 34726 [place] AYOOB AND SHOULDER 1 MEDICAL COMPLETE SERV MINIMUM 2 FOUNDATIO VIEWS RADEX 47194 [place] ZAMZAM, SHOULDER 0 MEDICAL HARIGOVIN COMPLETE SERV DA R MINIMUM 2 FOUNDATIO VIEWS THER 11158 [facility] PROPH/DX 0 Y Y NJX IV [facility] PUSH SINGLE/1S T SBST/DRUG NONINVASI 27431 [facility] VE 0 Y Y EAR/PULSE [facility] OXIMETRY SINGLE DETER INJECTION J1885 [facility] 0 [facility] TROMETHAM INE PER 15 MG INJECTION J1885 [facility] 0 Y Y KETOROLAC [facility] TROMETHAM INE PER 15 MG THERAPEUT 34179 [facility] IC 0 Y Y PROPHYLAC [facility] TIC/DX INJECTION SUBQ/IM RADEX 76743 [place] DENISE MILLICENT SHOULDER 0 MEDICAL COMPLETE SERV MINIMUM 2 FOUNDATIO VIEWS RADEX 22782 [facility] [place] AURE, SHOULDER 0 RADIOLOGY RAJIV G COMPLETE MINIMUM 2 [place] [address] [facility] [place] SH[facility] [place] , [facility] W/MANIPUL ATION W/O ANES RADEX 66390 [facility] [place] SHOULDER 0 CO CO [facility] MINIMUM 2 VIEWS DEEP D9220 QUINCY FLORES, SEDATION/ 9 NARVAEZ [facility] ANESTHESI N02 A-[address]ST [address] [place] [address] [place] SCHWARTZB HEAD/BRAI 9 MEDICAL ERG, N W/O SERV ALMA G CONTRAST [facility]OUND[facility] MATERIAL RADEX 73172 MER WALKER, SHOULDER 9 MEDICAL VERNON Ro COMPLETE SERV MINIMUM [address] [place] [address] [facility] CERVICAL 9 Y Y SPINE W/O HOSPITAL HOSPITAL CONTRAST MATERIAL RADEX 95408 MER DENISE, ELBOW 9 MEDICAL VERNON G COMPLETE SERV MINIMUM 3 FOUNDATIO VIEWS INJECTION J2405 [facility] 9 Y Y [facility] [place] ON HCL PER 1 MG RADEX 27047 MER WALKER, SHOULDER 9 GARY JUNIOR G 1 VIEW SERV FOUNDATIO THERAPEUT 77259 [facility] IC 9 Y Y INJECTION [facility] IV PUSH EACH NEW DRUG NONINVASI 07935 [facility] VE 9 Y Y EAR/PULSE [facility] OXIMETRY SINGLE DETER INJECTION J1170 [facility] 9 Y Y HYDROMORP [facility] OSCAR UP TO 4 MG THER 58160 [facility] PROPH/DX 9 Y Y NJX IV [facility] HOSPITAL PUSH SINGLE/1S T SBST/[place] [address] APOLONIA LAL, SHOULDER 9 EMERGENCY KALEB P DISLC SERVICES W/MANIPUL ATION W/O ASSOCIATE ANES S CLOSED 7971 NANCY CRUZ [facility] 9 [facility] DISLOCATI ON OF SHOULDER RADEX 48658 [facility] PONCE, SHOULDER 9 MEDICAL WILLIE P COMPLETE IMAGING MINIMUM 2 ASSOCIATE VIEWS S RADEX 26296 [place] SHOULDER 9 CO CO [facility] MINIMUM [address] [place] [address] [facility] SHOULDER 9 , SHANNON M , SHANNON M DISLC W/MANIP[place]ION W/[place] [address] APOLONIA LAL, SHOULDER 9 EMERGENCY KALEB P DISLC SERVICES W/MANIPUL ATION W/O ASSOCIATE ANES S RADEX 22218 ANNI PONCE, SHOULDER 9 MEDICAL WILLIE P COMPLETE IMAGING MINIMUM 2 ASSOCIATE VIEWS S RADEX 25148 [facility] PONCE, SHOULDER 9 MEDICAL WILLIE P 1 VIEW IMAGING ASSOCIATE S CLOSED 7971 NANCY CRUZ REDUCTION 9 MEM HOSP [facility]OSP OF INC INC DISLOCATI ON OF SHOULDER CLOSED 7971 NANCY CRUZ REDUCTION 9 MEM HOSP MEM [facility]OSP OF INC INC DISLOCATI ON OF SHOULDER RADEX 17399 ANNI PONCE, SHOULDER 9 MEDICAL WILLIE P 1 VIEW IMAGING ASSOCIATE S RADEX 65975 NANCY CRUZ SHOULDER 9 MEM HOSP MEM HOSP COMPLETE INC INC MINIMUM 2 [place] [address], SHOULDER 9 EMERGENCY JONAH DISLC SERVICES O W/MANIPUL ATION W/O ASSOCIATE ANES S ORTHOPANT 17800 QU[facility] [place] OGRAM 9 SOLANGE Hernandez IIIPSC N02 DEEP D9220 QUINCY [place] SEDATION/ 9 SOLANGE Hernandez GENERAL IIIPSC ANESTHESI N02 A-1ST 30 MINUTES Encounters Encounter Start End Date Code Location Performer Type Date EMERGENCY 58715 KAMI KELLER, 7 7 [address] PERAL[address] [facility] T VISIT HIGH/URGE NT SEVERITY OFFICE 01191 OUTPATIEN 7 7 [facility]ALTH[facility] T VISIT 5 E MINUTES [facility]OSPITALS [facility] - 7 7 [facility]ALTHCAR OUTPATIEN E T HOSPITALS OFFICE 44463 [place] LEN-C CONSULTAT 7 7 MEDICAL ASTELLANO ION SERV S NEW/ESTAB FOUNDATIO PATIENT N 40 MIN OFFICE 87821 [facility] ESTEBAN OUTPATIEN 7 7 HEALTH T VISIT MEDICAL 25 GROUP MINUTES OFFICE 37680 [facility] OUTPATIEN 7 7 HEALTH T VISIT MEDICAL 15 GROUP MINUTES OFFICE 66323 [facility] CONSULTAT 7 7 [place] ION PHYSICIAN NEW/ESTAB S ASSIST PATIENT 40 MIN HOSPITAL [facility] - 7 7 HEALTHCAR OUTPATIEN E T HOSPITALS OFFICE 91345 [facility] OUTPATIEN 7 7 HEALTHCAR T VISIT 5 E MINUTES HOSPITALS OFFICE 29799 [facility] OUTPATIEN 7 7 HEALTH T VISIT MEDICAL 15 GROUP MINUTES OFFICE 46292 [facility] OUTPATIEN 7 7 HEALTH T VISIT MEDICAL 15 GROUP MINUTES OFFICE 75080 [facility] OUTPATIEN 7 7 HEALTH T VISIT MEDICAL 25 GROUP MINUTES OFFICE 90775 [facility] OUTPATIEN 6 6 HEALTH DUS T VISIT MEDICAL 15 GROUP MINUTES OFFICE 86757 [facility] OUTPATIEN 6 6 HEALTH DUS T VISIT MEDICAL 15 GROUP MINUTES OFFICE 46627 [facility] OUTPATIEN 6 6 HEALTH DUS T VISIT MEDICAL 25 GROUP MINUTES OFFICE 88953 [facility] ESTEBAN OUTPATIEN 6 6 HEALTH BARBARA T VISIT MEDICAL 15 GROUP MINUTES OFFICE 48093 [facility] OUTPATIEN 6 6 HEALTH DUS T VISIT MEDICAL 15 GROUP MINUTES HOSPITAL [facility] - 6 6 HEALTH OUTPATIEN SHERIDAN T OFFICE 77200 [facility] OUTPATIEN 6 6 HEALTH DUS T VISIT MEDICAL 25 GROUP MINUTES OFFICE 74219 [facility] OUTPATIEN 6 6 HEALTH DUS T VISIT MEDICAL 15 GROUP MINUTES OFFICE 70127 [facility] OUTPATIEN 6 6 HEALTH DUS T VISIT MEDICAL 15 GROUP MINUTES OFFICE 08571 [facility] OUTPATIEN 6 6 HEALTH DUS T VISIT MEDICAL 15 GROUP MINUTES HOSPITAL [facility] - 6 6 [facility] OUT[facility]IEN HOSP T OFFICE 77967 [facility] OUTPATIEN 6 6 HEALTH DUS T NEW 30 MEDICAL MINUTES GROUP OFFICE 55509 [facility] OUT[facility]IEN 6 6 HEALTH T NEW 45 MEDICAL MINUTES GROUP EMERGENCY 97187 [facility] DICIRO DEPT 6 6 CHICA DOM VISIT EMERGENCY HIGH PHYS SEVERITY& THREAT [facility] UN[facility]ERSIT - 6 6 Y [facility] T EMERGENCY 42301 UNIVERSIT 6 6 Y [facility] T VISIT HIGH/URGE NT SEVERITY OFFICE 71128 [facility] 3 3 [place] [facility] ELL T NEW 30 MEDICINE MINUTES P EMERGENCY [id number] VISIT MODERATE SEVERITY [facility] [place] [address] 3 [facility] T EMERGENCY 92162 [place] MENDEZ 3 3 EMERGENCY MAR DEPARTMEN SERVICES T VISIT HIGH/URGE NT SEVERITY EMERGENCY 62005 [place] NAGY 3 3 EMERGENCY DEV DEPARTMEN SERVICES T VISIT MODERATE SEVERITY EMERGENCY 71197 MER MICHAEL 3 3 MEDICAL DEPARTMEN SERV T VISIT FOUNDATIO MODERATE SEVERITY EMERGENCY 64145 MER GODFREY 2 2 MEDICAL MAT DEPARTMEN SERV T VISIT FOUNDATIO HIGH/URGE NT SEVERITY EMERGENCY 47267 UNIVERSIT 2 2 Y [facility] T VISIT LOW/MODER SEVERITY HOSPITAL UNIVERSIT - 2 2 Y [facility] T EMERGENCY 27457 [place] WYMAN 2 2 EMERGENCY RYA DEPARTMEN SERVICES T VISIT HIGH/URGE NT SEVERITY EMERGENCY 74978 UNIVERSIT 2 2 Y [facility] T VISIT MODERATE SEVERITY HOSPITAL UNIVERSIT - 2 2 Y [facility] T HOSPITAL UNIVERSIT - 1 1 Y [facility] T EMERGENCY 66718 UNIVERSIT 1 1 Y [facility] T VISIT LOW/MODER SEVERITY HOSPITAL UNIVERSIT - 1 1 Y [facility] T EMERGENCY 64484 UNIVERSIT 1 1 Y [facility] T VISIT LOW/MODER SEVERITY EMERGENCY 34419 MER REN JR 1 1 MEDICAL LUNA DEPARTMEN SERV T VISIT FOUNDATIO MODERATE SEVERITY EMERGENCY 73508 [place] JONES, 0 0 EMERGENCY [facility] A T VISIT MODERATE ASSOCIATE SEVERITY S HOSPITAL [place] - 0 0 [facility] T EMERGENCY 93678 [place] MENENDEZ T 0 0 EMERGENCY DEPARTMEN SERVICES T VISIT MODERATE SEVERITY EMERGENCY 63029 UNIVERSIT 0 0 Y [facility] T VISIT LOW/MODER SEVERITY HOSPITAL UN[facility]ERSIT - 0 0 [facility] T EMERGENC[facility] 86105 MER DE [place] ROS[place], 0 0 MEDICAL THA T DEPARTMEN SERV T VISIT FOUNDATIO MODERATE SEVERITY EMERGENCY 52154 MER DE [place] 0 0 MEDICAL SET DEPARTMEN SERV T VISIT FOUNDATIO MODERATE SEVERITY HOSPITAL UNIVERSIT - 0 0 [facility] EMERGENC[facility] 30142 UNIVERSIT 0 0 Y [facility] T VISIT LOW/MODER SEVERITY EMERGENCY [id number] CHELY 0 0 [facility] T VISIT LIMITED/M [facility] CHELY - 0 0 [facility] T HOSPITAL UNIVERSIT - 9 9 Y [facility] T EMERGENCY 59033 MER [place], 9 9 [facility] L DEPARTMEN SERV T VISIT FOUNDATIO HIGH/URGE NT SEVERITY HOSPITAL NANCY - 9 9 [facility] 82512 [place] LAL, 9 9 EMERGENCY KALEB P DEPARTMEN SERVICES T VISIT HIGH/URGE ASSOCIATE NT S SEVERITY EMERGENCY 22039 NANCY 9 9 [facility] T VISIT MODERATE SEVERITY HOSPITAL CHELY - 9 9 [facility] T EMERGENCY [id number] [facility] T VISIT LIMITED/M INOR [facility] NANCY - 9 9 [facility] [address]63 NANCY [address] [facility] T VISIT LOW/MODER SEVERITY EMERGENCY 78765 [place] LAL, 9 9 EMERGENCY [facility] T VISIT MODERATE ASSOCIATE SEVERITY [facility] NANCY - 9 9 [facility] EMERGENCY [address]37 NANCY [address] [facility] T VISIT HIGH/URGE NT SEVERITY OFFICE 44838 [facility] 9 9 [place] NEW 10 [facility] MINUTES N02
--- OUTSIDE RECORDS SUMMARY | 2016-12-19 00:10 | External Medical Summary Rpt ---
Demographics Preferred Language Hebrew Marital Status Unknown Pentecostalism Affiliation Unknown Race Unknown Ethnic Group Unknown Author Author , HARRIET LARIOS Address Unknown Phone Immunization Unable to retrieve immunization data due to connection failure with Immunization Registry. Please try again later.
--- OUTSIDE RECORDS SUMMARY | 2016-12-19 00:10 | External Medical Summary Rpt ---
Author Author , HARRIET Ball HARRIET Address Unknown Phone [email or web address] Care Team Providers Care Transcription Specialist Name Role Phone AYOOB AND, AYOOB AND Unavailable Unavailable [facility] Unavailable Unavailable [facility], [facility] Unavailable Unavailable [facility] COLINDRES, COLINDRES Unavailable Unavailable [facility], Unavailable Unavailable [facility], Unavailable Unavailable [facility] ZAMZAM, HARIGOVINDA Unavailable Unavailable R, ZAMZAM, HARIGOVINDA R [facility] # [id number], Unavailable Unavailable [facility] # [id number] GEMMA T, GEMMA T Unavailable Unavailable GODFREY MAT, GODFREY Unavailable Unavailable MAT DELAIR, DELAIR Unavailable Unavailable PINO FERNANDA, PINO FERNANDA Unavailable Unavailable KILEY, KILEY Unavailable Unavailable KILEY DUS, KILEY Unavailable Unavailable DUS DICIRO DOM, DICIRO Unavailable Unavailable DOM [facility] Unavailable [place] [facility] [place] FARAGASSO DEV, Unavailable Unavailable FARAGASSO DEV KALEB LAL, Unavailable Unavailable KALEB LAL SIEGEL MARIOLA, SIEGEL Unavailable Unavailable MARIOLA KELLER JR, FULLER, Unavailable Unavailable AURE RAJIV G, Unavailable Unavailable AURE, RAJIV G [facility] Unavailable Unavailable [facility], [facility] Unavailable Unavailable IMAGING [facility], [facility] DENISE MILLICENT, DENISE MILLICENT Unavailable Unavailable VERNON WALKER KING, Unavailable Unavailable TUSHAR ORTEGA, Unavailable Unavailable TUSHAR HENLEY [facility] Unavailable Unavailable [facility] Un[facility] Unavailable Unavailable SERVICES, [facility] RASHARD CALLOWAY, Unavailable Unavailable RASHARD CALLOWAY MD LABS, LABS Unavailable Unavailable LABS, LABS Unavailable Unavailable WILLIE PONCE, Unavailable Unavailable WILLIE PONCE ROBERT, Unavailable Unavailable SHANNEN FLORES [facility], Unavailable Unavailable [facility], [...] JONAH O, Unavailable Unavailable SOKAN, JONAH O [facility], Unavailable Unavailable [facility], Unavailable Unavailable [facility] WYMAN RYA, WYMAN Unavailable Unavailable RYA STEARLEY SET, Unavailable Unavailable STEARLEY SET STEARLEY, THA T, Unavailable Unavailable STEARLEY, THA T ESTEBAN, ESTEBAN Unavailable Unavailable ESTEBAN BARBARA, ESTEBAN Unavailable Unavailable BARBARA SWINEY, JOHN A, Unavailable Unavailable SWINEY, JOHN A JODIE EMERALD, JODIE Unavailable Unavailable EMERALD [facility] Unavailable Unavailable HOSPITALS, [facility] Unavailable Unavailable MEDICINE P, [facility] Unavailable Unavailable ASSIST, [facility] ASSIST [facility], Unavailable Unavailable [facility], Unavailable Unavailable [facility] SHANNON HONEYCUTT, Unavailable Unavailable SHANNON HONEYCUTT [facility] Unavailable Unavailable #493, [id number] KALEB APONTE, FAY, Unavailable Unavailable KALEB CARRASCO, MIKAL Unavailable Unavailable JR CARRASCO Purpose Continuity of Care Document - 06-23-2008 through 2016 Problems Code Diagnosis DOS Provider Status M542 CERVICALGIA 11-06-2016 [facility] [id number] STRAIN 11-06-2016 [facility] MUSCLE [facility]ASC PHYSICIANS, & TENDON PLLC NECK LEVL INIT ENC 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 M5410 RADICULOPAT 10-10-2016 [facility] SITE SERV UNSPECIFIED FOUNDATION M545 LOW BACK 10-10-2016 [facility] M5416 RADICULOPAT 10-01-2016 [facility] L[facility]BAR [facility] REGION MEDICAL GROUP M5442 LUMBAGO 10-01-2016 [facility] WITH HEALTH [facility] MEDICAL LEFT SIDE GROUP Z5181 ENCOUNTER 10-01-2016 MD LABS FOR THERAPEUTIC DRUG LEVEL MONITORING V64582 OTHER LONG 10-01-2016 MD LABS TERM CURRENT DRUG THERAPY K219 GASTRO-ESOP 09-01-2016 [facility] H REFLUX [facility]ALTH DISEASE MEDICAL WITHOUT GROUP ESOPHAGITIS M6281 MUSCLE 09-01-2016 [facility] GENERALIZED MEDICAL GROUP [id number] PAIN IN 08-11-2016 [facility] LEFT LEG PHYSICIANS ASSIST Z0000 ENCOUNTER 08-11-2016 [facility] MED EXAM HOSPITALS W/O ABNORMAL FIND M4806 SPINAL 07-30-2016 [facility] ST[facility]OSIS [facility] LUMBAR MEDICAL REGION GROUP Z6822 BODY MASS 06-09-2016 [facility] INDEX BMI HEALTH 22.0-22.9 MEDICAL ADULT GROUP K5909 OTHER 11-19-2015 [facility] CONSTIPATIO HEALTH N MEDICAL GROUP K921 MELENA 11-19-2015 [facility] [id number] STRAIN 10-11-2015 [facility] MUSCLE HEALTH FASCIA & MEDICAL TENDON LOW GROUP BACK INITIAL [id number] STRN UNS 10-11-2015 [facility] M&T SHLDR HEALTH UP ARM LEVL MEDICAL RT ARM GROUP INIT ENC R0789 OTHER CHEST 07-20-2015 [facility] R079 CHEST PAIN 07-20-2015 [facility]PECIFIED SERV [facility]ATION Z720 TOBACCO USE 07-20-2015 [facility] 7242 LUMBAGO 09-30-2012 [facility] FAMILY MEDICINE P 8479 SPRAIN AND 09-30-2012 [facility] STRAIN OF [facility] UNSPECIFIED MEDICINE P SITE OF BACK 7243 SCIATICA 09-20-2012 [facility] 7820 DISTURBANCE 09-20-2012 [facility] SENSATION 15042 OTHER 09-20-2012 [facility] D[facility] AND [facility]OSPITAL RESPIRATORY ABNORMALITI ES V5869 LONG-TERM 09-20-2012 [facility] (CURRENT) H[facility]PITAL USE OF OTHER MEDICATIONS 9953 ALLERGY 09-15-2012 [facility] UNSPECIFIED [facility]ERGENCY NOT SERVICES ELSEWHERE CLASSIFIED E9320 ADRENL 09-15-2012 [facility] CORTICAL EMERGENCY STEROIDS SERVICES CAUS ADVRS EFF TX USE 7295 PAIN IN 08-30-2012 [facility] SOFT SERV TISSUES OF FOUNDATIO LIMB 86746 ESOPHAGEAL 03-22-2012 [facility] REFLUX SERV [facility] 03998 CHEST PAIN 03-22-2012 [facility] UNSPECIFIED SERV FOUNDAT[facility] 37641 ABDOMINAL 03-22-2012 [facility] PAIN, SERV EPIGASTRIC FOUND[facility] 62843 OTHER 03-21-2012 [facility] PAIN 8460 SPRAIN AND 03-21-2012 [facility] STRAIN OF EMERGENCY LUMBOSACRAL SERVICES 8472 LUMBAR 03-21-2012 [facility] STRAIN 7244 THORACIC/JOAQUIN 02-13-2012 [facility] MBOSACRAL EMERGENCY NEURITIS/RA SERVICES DICULITIS UNSPEC 9597 INJURY 10-05-2010 [place] [facility] OTHER&UNSPE SERV CIFIED KNEE FOUNDATIO LEG ANKLE&FOOT 7062 SEBACEOUS 10-01-2010 [facility] 53910 UNSPECIFIED 09-28-2010 [facility] ENTHESOPATH [facility] Y OF ANKLE AND TARSUS 08097 UNSPECIFIED 09-28-2010 [facility] 14227 OTHER 09-28-2010 [facility] GANGLION&CY SERV ST OF FOUNDATIO SYNOVIUM TENDON&BURS A 7822 LOCALIZED 09-28-2010 [facility] SUPERFICIAL SERV SWELLING FOUNDATIO MASS OR LUMP 37835 RECURRENT 09-02-2010 [facility] DIS[facility]ATION SERV OF FOUNDAT[facility] SHOULDER JOINT 63643 PAIN IN 11-23-2009 [facility] JOINT, SERV SHOULDER FOUNDATIO REGION 32047 CLOSED 11-23-2009 [facility] DISLOCATION EMERGENCY OF SERVICES SHOULDER ASSOCIATES UNSPECIFIED SITE V4589 OTHER 08-25-2009 [facility] POSTSURGICA SERV L STATUS FOUNDATIO OTHER 7245 UNSPECIFIED 07-09-2009 [facility] BACKACHE SERV F[facility] V1588 PERSONAL 07-09-2009 [facility] HISTORY OF HOSPITAL FALL 05025 CLOSED 06-21-2009 [facility] ANTERIOR RADIOLOGY DISLOCATION OF HUMERUS E8499 UNSPECIFIED 06-10-[address] [facility]P[address] OCCURRENCE E9270 OVEREXERTIO 06-10-2009 [facility] N FROM HOSPITAL SUDDEN STRENUOUS MOVEMENT 5220 PULPITIS 03-13-2009 [facility]VAEZ [facility] N02 8470 NECK SPRAIN 01-14-2009 [place] [facility] STRAIN SERV [facility] 84066 CONTUSION 01-14-2009 [place] [facility] OF SHOULDER SERV REGION [facility] 19527 HEAD 01-14-2009 [place] [facility] INJURY, SERV UNSPECIFIED FOUNDATIO 54620 INJURY OF 01-14-2009 [facility] FACE AND SERV NECK OTHER FOUNDATIO AND UNSPECIFIED 9592 INJURY 01-14-2009 [place] [facility] OTHER&UNSPE SERV CIFIED [facility]ATIO SHOULDER&UP PER ARM 9593 INJURY 01-14-2009 [place] [facility] OTHER&UNSPE SERV CIFIED FOUNDATIO ELBOW FOREARM&WRI ST E8809 ACCIDENTAL 01-14-2009 [place] [facility] FALL ON OR SERV FROM OTHER [facility] STAIRS OR STEPS V5489 OTHER 01-07-2009 [facility] 17937 DEVELOPMENT 08-16-2008 [facility] DIS[facility] IMAGING [...] HE CE 5 92 AL TA TH NV NO RI PH CH EN MO ND 7. 5- SD 32 OF 5 ES SI ON AL PH AR MA CY NI 00 05 06 28 28 00 BA Ac CO 53 -1 -0 .0 00 PT ti TI 61 0- 2- 00 00 IS ve NE 10 20 20 60 T 88 17 17 51 HE 21 8 18 AL TH MG /2 RI 4H CH R MO PA ND TC H SD OF ES SI ON AL PH AR MA CY OX 00 04 05 60 15 00 BA Ac YC 40 -1 -0 .0 00 PT ti OD 60 0- 5- 00 00 IS ve ON 52 20 20 20 T -A 20 17 17 03 HE CE 5 43 AL TA TH NV NO RI PH CH EN MO ND 7. 5- SD 32 OF 5 ES SI ON AL PH AR MA CY OX 65 03 03 45 11 00 BL Ac YC 16 -0 -3 .0 00 UE ti OD 20 8- 1- 00 00 GR ve ON 20 20 28 -A 75 17 17 81 S CE 0 64 FA TA NV NV LY NO PH PH EN AR MA 7. CY 5- 32 5 OX 65 02 03 45 11 00 BL Ac YC 16 -1 -1 .0 00 UE ti OD 20 4- 0- 00 00 GR ve ON 20 28 -A 75 17 17 61 S CE 0 14 FA TA NV NV LY NO PH PH EN AR MA 7. CY 5- 32 5 OX 65 01 02 60 15 00 BL Ac YC 16 -1 -1 .0 00 UE ti OD 20 6- 0- 00 00 GR ve ON 20 28 -A 75 17 17 37 S CE 0 57 FA TA NV NV LY NO PH PH EN AR MA 7. CY 5- 32 5 OX 65 12 01 60 15 00 BL Ac YC 16 -1 -1 .0 00 UE ti OD 20 5- 3- 00 00 GR ve ON 20 28 -A 75 16 17 11 S CE 0 95 FA TA NV NV LY NO PH PH EN AR MA 7. CY 5- 32 5 OX 00 05 05 16 4 CV 36 DA Ac YC 59 -0 -0 .0 S 28 LE ti OD 10 8- 8- 00 PH 91 ve ON 93 20 20 AR II -A 30 10 10 MA CE 1 CY TH TA # OM NV NO 02 PH 33 EN 2 7. [...] 20 77 09 09 FA RO 0 NV BE LY RT H DR UG PE 00 10 10 00 30 7 SO 32 AL Ac NI 78 -1 -2 .0 PE 52 LE ti CI 11 4- 2- 00 RS 73 N ve LL 65 20 20 BR IN 51 09 09 FA AN 0 NV DO VK LY N I 50 DR 0 UG MG TA BL ET ET 51 10 10 00 16 4 SO 32 AL Ac OD 67 -1 -2 .0 PE 52 LE ti OL 24 4- 2- 00 RS 74 N ve AC 01 20 20 BR 80 09 09 FA AN 40 1 NV DO 0 LY N MG I DR [...] 20 AN 90 09 09 FA 5 NV JA LY ME S DR P UG IB 55 08 08 00 40 13 SO 32 FL Ac UP 11 -1 -2 .0 PE 00 AN ti RO 10 7- 7- 00 RS 77 AG ve FE 68 20 20 AN N 30 09 09 FA 60 5 NV JA 0 LY ME MG S DR P TA UG BL ET TR 65 04 05 01 20 5 SO 31 Ac AM 16 -1 -0 .0 PE 15 LL ti AD 20 7- 7- 00 RS 27 AF ve OL 62 20 20 LO 71 09 09 FA R HC 1 NV OS L LY IA [address] M MG UG TA BL ET TR 65 04 04 00 20 5 SO 31 Ac AM 16 -1 -2 .0 PE 15 LL ti AD 20 7- 3- 00 RS 27 AF ve OL 62 20 20 LO 71 09 09 FA R HC 1 NV OS L LY IA [address] [...] 80 09 09 FA AN 40 1 NV DO 0 LY N MG I DR [...] LI 30 09 09 FA N 5 NV DO 50 LY NA [address] R UG CA PS UL E PE 00 01 01 00 28 7 SO 30 AL Ac NI 78 -2 -3 .0 PE 37 LE ti CI 11 0- 0- 00 RS 26 N ve LL 65 20 20 BR IN 51 09 09 FA AN 0 NV DO VK LY N I 50 DR 0 UG MG TA BL ET ET 51 01 01 00 16 4 SO 30 AL Ac OD 67 -2 -3 .0 PE 37 LE ti OL 24 0- 0- 00 RS 27 N ve AC 01 20 20 BR 80 09 09 FA AN 40 1 NV DO 0 LY N MG I [address] MAHENDRA HILL BL ET Procedures Procedure DOS Code Location Performer Comment RADEX 21093 [place] [facility] SPINE 7 MEDICAL CERVICAL IMAGING 4 OR 5 ASS VIEWS DRUG TST G0483 LABS MD LABS DEFINITV 7 ID METH P DAY 22/MORE DR MALDONADO DRUG TEST 55161 MD LABS MD LABS PRSMV 7 INSTRMNT CHEMISTRY ANALYZERS MRI 11969 [facility] [place] RADMANESH SPINAL 6 RADIOLOGY SHA CANAL LUMBAR W/O CONTRAST MATERIAL MRI 82526 [facility] SPINAL 6 HEALTH HEALTH CANAL [facility] LUMBAR W/O CONTRAST MATERIAL INJECTION J1885 [facility] KILEY 6 HEALTH DUS KET[facility]AC [facility]ICAL GROUP TROMETHAM INE PER 15 MG THERAPEUT 63819 [facility] KILEY IC 6 HEALTH DUS PROPHYLAC MEDICAL TIC/DX GROUP INJECTION SUBQ/IM RADEX 95057 [facility] [place] SCALF JEREMIAH SPINE 6 RADIOLOGY LUMBSCRL COMPL W/BENDING VIEWS MIN 6 25 63627 [facility] HYDROXY 6 [facility] INCLUDES HOSP HOSP FRACTIONS IF PERFORMED RADEX 49022 [facility] SPINE 6 [facility] AL ONLY BENDING 2/3 VIEWS BLOOD 88059 [facility] COUNT 6 [facility] COMPLETE HOSP HOSP AUTO&AUTO DIFRNTL WBC COMPREHEN 94688 [facility] SIVE 6 [facility] [place] [address] [facility] FREE 6 [facility] [place] [address] [facility] THYROID 6 [facility] STIMULATI HOSP HOSP NG HORMONE TSH RADEX 01372 [facility] SPINE 6 [facility] MEDICAL MEDICAL AL 2/3 GROUP GROUP VIEWS RADEX 05112 [facility] SHOULDER 6 [facility] MINIMUM 2 [place] [address] [facility] TROPONIN 6 Y Y QUANTITAT [facility] VERA FIBRIN 37304 [facility] DGRADJ 6 Y Y PRODUCTS HOSPITAL HOSPITAL D-DIMER QUANTITAT VERA COMPREHEN 64698 [facility] SIV 6 Y Y METABOLIC HOSPITAL HOSPITAL PANEL BLOOD 96115 [facility] COUNT 6 Y Y COMPLETE HOSPITAL HOSPITAL AUTO&AUTO DIFRNTL WBC ECG 61106 [facility] ROUTINE 6 Y Y ECG HOSPITAL HOSPITAL W/LEAST 12 LDS TRCG ONLY W/O I&R RADIOLOGI 02772 [place] JODIE C EXAM 6 MEDICAL EMERALD CHEST 2 SERV VIEWS FOUNDATIO FRONTAL&L N ATERAL ECG 87914 [place] SIEGEL ROUTINE 6 MEDICAL NAN ECG SERV W/LEAST FOUNDATIO 12 LDS N I&R ONLY ECG 79484 [place] WYATT CHI ROUTINE 3 MEDICAL ECG SERV W/LEAST FOUNDATIO 12 LDS I&R ONLY ECG 41986 [place] [facility] ROUTINE 2 MEDICAL NAN ECG SERV W/LEAST FOUNDATIO 12 LDS I&R ONLY INJ J2930 [facility] Y NISOLONE [facility] SODIUM SUCCNAT TO 125 MG THERAPEUT 88690 [facility] IC 2 Y Y PROPHYLAC [facility] TIC/DX INJECTION SUBQ/IM INJECTION J1885 [facility] 2 Y Y KETOROLAC [facility] TROMETHAM INE PER 15 MG RADEX 04286 [place] AYOOB AND FOOT 1 MEDICAL COMPLETE SERV MINIMUM 3 FOUNDATIO VIEWS RADEX 75182 [place] REXROAD FOOT 1 MEDICAL SHU COMPLETE SERV MINIMUM 3 FOUNDATIO VIEWS RADEX 65937 [place] AYOOB AND SHOULDER 1 MEDICAL COMPLETE SERV MINIMUM 2 FOUNDATIO VIEWS RADEX 98673 [place] ZAMZAM, SHOULDER 0 MEDICAL HARIGOVIN COMPLETE SERV DA R MINIMUM 2 FOUNDATIO VIEWS THER 08491 [facility] PROPH/DX 0 Y Y NJX IV [facility] PUSH SINGLE/1S T SBST/DRUG NONINVASI 49006 [facility] VE 0 Y Y EAR/PULSE [facility] OXIMETRY SINGLE DETER INJECTION J1885 [facility] 0 Y [facility] TROMETH[facility] INE PER 15 MG INJECTION J1885 [facility] 0 Y Y KETOROLAC [facility] TROMETHAM INE PER 15 MG THERAPEUT 02378 [facility] IC 0 Y Y PROPHYLAC [facility] TIC/DX INJECTION SUBQ/IM RADEX 95795 [place] DENISE MILLICENT SHOULDER 0 MEDICAL COMPLETE SERV MINIMUM 2 FOUNDATIO VIEWS RADEX 95755 [facility] [place] AURE, SHOULDER 0 RADIOLOGY RAJIV G COMPLETE MINIMUM 2 [place] [address] [facility] [place] SHOULDER 0 CO , [facility] W/MANIPUL ATION W/O ANES RADEX 77752 [facility] [place] SHOULDER 0 CO CO [facility] MINIMUM 2 VIEWS DEEP D9220 QUIN[facility] FLORES, SEDATION/ 9 NARVAEZ [facility] ANESTHESI N02 A-[address] [place] [address] [place] SCHWARTZB HEAD/BRAI 9 MEDICAL ERG, N W/O SERV ALMA G CONTRAST FOUNDATIO MATERIAL RADEX 66071 MER WALKER, SHOULDER 9 MEDICAL VERNON Ro COMPLETE SERV MINIMUM [address] [place] [address] [facility] CERVICAL 9 Y Y SPINE W/O HOSPITAL HOSPITAL CONTRAST MATERIAL RADEX 12460 MER DENISE, ELBOW 9 MEDICAL VERNON G COMPLETE SERV MINIMUM 3 FOUNDATIO VIEWS INJECTION J2405 [facility] 9 [facility] ON HCL PER 1 MG RADEX 34564 MER WALKER, SHOULDER 9 GARY JUNIOR G 1 VIEW SERV FOUNDATIO THERAPEUT 23458 [facility] IC 9 Y Y INJECTION [facility] IV PUSH EACH NEW DRUG NONINVASI 47258 [facility] VE 9 Y Y EAR/PULSE [facility] OXIMETRY SINGLE DETER INJECTION J1170 [facility] 9 Y Y HYDROMORP [facility] OSCAR UP TO 4 MG THER 32135 [facility] PROPH/DX 9 Y Y NJX IV [facility] PUSH SINGLE/1S T SBST/[place] [address] APOLONIA LAL, SHOULDER 9 EMERGENCY KALEB P DISLC SERVICES W/MANIPUL ATION W/O ASSOCIATE ANES S CLOSED 7971 NANCY CRUZ [facility] 9 [facility] DISLOCATI ON OF SHOULDER RADEX 12418 [facility] PONCE, SHOULDER 9 MEDICAL WILLIE P COMPLETE IMAGING MINIMUM 2 ASSOCIATE VIEWS S RADEX 40616 [place] SHOULDER 9 CO CO [facility] MINIMUM [address] [place] [address] [facility] SHOULDER 9 , SHANNON M , SHANNON M DISLC W/MANIPUL ATION W/[place] [address] APOLONIA LAL, SHOULDER 9 EMERGENCY KALEB P DISLC SERVICES W/MANIPUL ATION W/O ASSOCIATE ANES S RADEX 59516 ANNI PONCE, SHOULDER 9 MEDICAL WILLIE P COMPLETE IMAGING MINIMUM 2 ASSOCIATE VIEWS S RADEX 29765 [facility]ne PONCE, SHOULDER 9 MEDICAL WILLIE P 1 VIEW IMAGING ASSOCIATE S CLOSED 7971 NANCY CRUZ REDUCTION 9 [facility] OF INC INC DISLOCATI ON OF SHOULDER CLOSED 7971 NANCY CRUZ REDUCTION 9 [facility] OF INC INC DISLOCATI ON OF SHOULDER RADEX 08925 ANNI PONCE, SHOULDER 9 MEDICAL WILLIE P 1 VIEW IMAGING ASSOCIATE S RADEX 07991 NANCY CRUZ SHOULDER 9 MEM HOS[facility] MEM [facility]OSP COMPLETE INC INC MINIMUM 2 [place] [address], SHOULDER 9 EMERGENCY JONAH DISLC SERVICES O W/MANIPUL ATION W/O ASSOCIATE ANES S ORTHOPANT 39946 [facility] [place] OGRAM 9 SOLANGE Hernandez IIIPSC N02 DEEP D9220 [facility] [place] SEDATION/ 9 SOLANGE Hernandez GENERAL IIIPSC ANESTHESI N02 A-1ST 30 MINUTES Encounters Encounter Start End Date Code Location Performer Type Date EMERGENCY 83291 KAMI KELLER, 7 7 PHYSICIAN JR PERALTA [facility] T VISIT HIGH/URGE NT SEVERITY OFFICE 33079 OUTPATIEN 7 7 [facility]ALTH[facility] T VISIT 5 E MINUTES [facility]OSPITALS [facility] - 7 7 [facility]ALTHCAR OUTPATIEN E T HOSPITALS OFFICE 51828 [place] LEN-C CONSULTAT 7 7 MEDICAL ASTELLANO ION SERV S NEW/ESTAB FOUNDATIO PATIENT N 40 MIN OFFICE 79232 [facility] ESTEBAN OUTPATIEN 7 7 HEALTH T VISIT MEDICAL 25 GROUP MINUTES OFFICE 67527 [facility] OUTPATIEN 7 7 HEALTH T VISIT MEDICAL 15 GROUP MINUTES OFFICE 28862 [facility] CONSULTAT 7 7 [place] ION PHYSICIAN NEW/ESTAB S ASSIST PATIENT 40 MIN HOSPITAL [facility] - 7 7 HEALTHCAR OUTPATIEN E T HOSPITALS OFFICE 66957 [facility] OUTPATIEN 7 7 HEALTHCAR T VISIT 5 E MINUTES HOSPITALS OFFICE 38866 [facility] OUTPATIEN 7 7 HEALTH T VISIT MEDICAL 15 GROUP MINUTES OFFICE 20132 [facility] OUTPATIEN 7 7 HEALTH T VISIT MEDICAL 15 GROUP MINUTES OFFICE 03403 [facility] OUTPATIEN 7 7 HEALTH T VISIT MEDICAL 25 GROUP MINUTES OFFICE 74793 [facility] OUTPATIEN 6 6 HEALTH DUS T VISIT MEDICAL 15 GROUP MINUTES OFFICE 26821 [facility] OUTPATIEN 6 6 HEALTH DUS T VISIT MEDICAL 15 GROUP MINUTES OFFICE 16487 [facility] OUTPATIEN 6 6 HEALTH DUS T VISIT MEDICAL 25 GROUP MINUTES OFFICE 17040 [facility] ESTEBAN OUTPATIEN 6 6 HEALTH BARBARA T VISIT MEDICAL 15 GROUP MINUTES OFFICE 53124 [facility] OUTPATIEN 6 6 HEALTH DUS T VISIT MEDICAL 15 GROUP MINUTES HOSPITAL [facility] - 6 6 HEALTH OUTPATIEN SHERIDAN T OFFICE 48726 [facility] OUTPATIEN 6 6 HEALTH DUS T VISIT MEDICAL 25 GROUP MINUTES OFFICE 93468 [facility] OUTPATIEN 6 6 HEALTH DUS T VISIT MEDICAL 15 GROUP MINUTES OFFICE 44929 [facility] OUTPATIEN 6 6 HEALTH DUS T VISIT MEDICAL 15 GROUP MINUTES OFFICE 49345 [facility] OUTPATIEN 6 6 HEALTH DUS T VISIT MEDICAL 15 GROUP MINUTES HOSPITAL CENTRAL - 6 6 [facility] OUTPATIEN HOSP T OFFICE 45889 [facility] OUTPATIEN 6 6 HEALTH DUS T NEW 30 MEDICAL MINUTES GROUP OFFICE 12696 [facility] OUTPATIEN 6 6 HEALTH T NEW 45 MEDICAL MINUTES GROUP EMERGENCY 46857 [facility] DICIRO DEPT 6 6 [facility] DOM VISIT EMERGENCY HIGH PHYS SEVERITY& THREAT [facility] UNIVERSIT - 6 6 Y [facility] T EMERGENCY 34206 UNIVERSIT 6 6 Y [facility] HOSPITAL T VISIT HIGH/URGE NT SEVERITY OFFICE 73232 [facility] 3 3 [place] FAMILY ELL T NEW 30 MEDICINE MINUTES P [address]ER[address]ENCY [address] VIS[address] MODERATE SEVERITY HOSPITAL [place] [address] 3 [facility] T EMERGENCY 96101 APOLONIA MENDEZ 3 3 EMERGENCY MAR DEPARTMEN SERVICES T VISIT HIGH/URGE NT SEVERITY EMERGENCY 26963 APOLONIA NAGY 3 3 EMERGENCY DEV DEPARTMEN SERVICES T VISIT MODERATE SEVERITY EMERGENCY 53599 MER MICHAEL 3 3 MEDICAL DEPARTMEN SERV T VISIT FOUNDATIO MODERATE SEVERITY EMERGENCY 72966 MER GODFREY 2 2 MEDICAL MAT DEPARTMEN SERV T VISIT FOUNDATIO HIGH/URGE NT SEVERITY EMERGENCY 02778 UNIVERSIT 2 2 Y [facility] HOSPITAL T VISIT LOW/MODER SEVERITY HOSPITAL UNIVERSIT - 2 2 Y [facility]ENC[facility] 58502 APOLONIA WYMAN 2 2 EMERGENCY RYA DEPARTMEN SERVICES T VISIT HIGH/URGE NT SEVERITY EMERGENCY 84419 UNIVERSIT 2 2 Y [facility] HOSPITAL T VISIT MODERATE SEVERITY HOSPITAL UNIVERSIT - 2 2 Y [facility] UNIVERSIT - 1 1 Y [facility] T EMERGENCY 79523 UNIVERSIT 1 1 Y [facility] T VISIT LOW/MODER SEVERITY HOSPITAL UNIVERSIT - 1 1 Y [facility] T EMERGENCY 69646 UNIVERSIT 1 1 Y [facility] T VISIT LOW/MODER SEVERITY EMERGENCY 69441 MER REN JR 1 1 [facility]ICAL [facility] DEPARTMEN SERV T VISIT FOUNDATIO MODERATE SEVERITY EMERGENCY 73157 [place] JONES, 0 0 [facility] T VISIT MODERATE ASSOCIATE SEVERITY S HOSPITAL [facility] - 0 0 [facility] T EMERGENCY 79186 [place]IA MENENDEZ T 0 0 EMERGENCY DEPARTMEN SERVICES T VISIT MODERATE SEVERITY EMERGENCY 60837 UNIVERSIT 0 0 Y [facility] T VISIT LOW/MODER SEVERITY HOSPITAL UNIVERSIT - 0 0 Y [facility] T EMERGENCY 35670 MER DE LA ROSA, 0 0 MEDICAL THA T DEPARTMEN SERV T VISIT FOUNDATIO MODERATE SEVERITY EMERGENCY 23038 MER DE [place] 0 0 MEDICAL SET DEPARTMEN SERV T VISIT FOUNDATIO MODERATE SEVERITY HOSPITAL UNIVERSIT - 0 0 [facility] T EMERGENCY 33630 UNIVERSIT 0 0 Y [facility] T VISIT LOW/MODER SEVERITY EMERGENCY [address] CHELY [address] [facility] T VISIT LIMITED/M [facility] PROB HOSPITAL CHELY - 0 0 [facility] T HOSPITAL UNIVERSIT - 9 9 Y [facility] EM[facility]GENCY 89459 MER HENLEY, 9 9 MEDICAL TUSH[facility] L DEPARTMEN SERV T VISIT FOUNDATIO HIGH/URGE NT SEVERITY [facility]OSPITAL NANCY - 9 9 [facility] 67019 AP[place]IA LAL, 9 9 EMERGENCY KALEB P DEPARTMEN SERVICES T VISIT HIGH/URGE ASSOCIATE NT S SEVERITY EMERGENCY 48951 NANCY 9 9 MEM [facility] INC T VISIT MODERATE SEVERITY HOSPITAL CHELY - 9 9 [facility] T EMERGENCY 95175 CHELY 9 9 [facility] T VISIT LIMITED/M INOR [facility] NANCY [facility] 9 9 [facility] 42568 NANCY 9 9 [facility] T VISIT LOW/MODER SEVERITY EMERGENCY 23688 AP[place]ONIA LAL, 9 9 EMERGENCY [facility] T VISIT MODERATE ASSOCIATE SEVERITY [facility] NANCY - 9 9 [facility] EMERGENCY 97111 NANCY 9 9 [facility] T VISIT HIGH/URGE NT SEVERITY OFFICE 56649 [facility] [place] [facility] 9 9 [place] [facility] [place] [facility] [facility] MINUTES N02
--- OUTSIDE RECORDS SUMMARY | 2016-12-19 00:11 | External Medical Summary Rpt ---
Author Author HARRIET Martines, [employer] Organization [employer] Address Unknown Phone Unavailable Results LSFLEX Observa Value Referen Units Interpr Notes Date tion ce etation Range TEXT PRESYBETERIAN No No No No Nov 09 [facility] informa informa informa informa 2015 IS tion in tion in tion in tion in 9:48 AM [facility] source source source source D\.br\8 data data data data [facility]\ .br\[place] [address]\. br\[id number] 1\.br\\ .br\[facility] Report\ .[id number]\ .br\\.b r\[place] d\.br\\ .br\PAT IENT NAME: ALISTAIR SANDOVALTOPJanet ER APONTE 349\.br \: [phone]\. br\ATTE NDING: REAGAN CAO DO DATE OF EXAM: 6\.br\P RIMARY CARE: REAGAN CAO DO LOCATIO N: RAD\.br \\.br\O RDERING PHYSICI AN: REAGAN CAO DO\.br\ PROCEDU RE(s): L-SPINE DIAG WFLEX EXTNSIO N\.br\O RDER NUMBER( s): [id number] 95\.br\ \.br\CC : REAGAN CAO DO\.br\ \.br\\. br\\.br \LUMBAR SPINE\. br\\.br \INDICA TION: Left-si ded low back pain with lower extremi ty radicul opathy. \.br\\. br\FIND INGS: 7 views of the lumbar spine. There are 4 nonrib- bearing \.br\tracy mbar-ty pe vertebr al bodies consist ent with anatomi c variati on. L5 is\.br\ likely sacrali zed. No bryan lissett deformi ty. No subluxa tion or\.br\ instabi lity identif ied with flexion or extensi on. Mild disc space\. br\narr owing in the lower lumbar spine.\ .br\\.b r\IMPRE SSION: Mild lower lumbar spine disc space narrowi ng. If symptom s\.br\p ersist, conside r MRI. No acute bony abnorma lity.\. br\\.br \This report was finaliz ed on 11/11/19 16 7:09 AM by Jeff Winston MD.\.br \\.br\\ .br\DIC TATED BY: BAYRON WINSTON MD\.br\ DICTATE D DATE/TI ME: 6 0948\.b r\TRANS CRIBED DATE/TI ME: 6 0709\.b r\\.br\ CC: REAGAN CAO DO\.br\
--- OUTSIDE RECORDS SUMMARY | 2016-12-19 00:11 | External Medical Summary Rpt ---
Author Author HARRIET Martines, [employer] Organization [employer] Address Unknown Phone Unavailable Results LSFLEX Observa Value Referen Units Interpr Notes Date tion ce etation Range TEXT SHINTO No No No No Nov 09 [facility] informa informa informa informa 2015 IS tion in tion in tion in tion in 9:48 AM [facility] source source source source D\.br\8 data data data data [facility] [place]\ .br\[place] [address]\. br\[id number] 1\.br\\ .br\[facility]\ .[id number]\ .br\\.b r\[place] d\.br\\ .br\PAT IENT NAME: ALISTAIR SANDOVALTOPJanet ER APONTE 349\.br \: [phone]\. br\ATTE NDING: REAGAN CAO DO DATE OF EXAM: 6\.br\P RIMARY CARE: REAGAN CAO DO LOCATIO N: RAD\.br \\.br\O RDERING PHYSICI AN: REAGAN CAO DO\.br\ PROCEDU RE(s): L-SPINE DIAG WFLEX EXTNSIO N\.br\O RDER NUMBER( s): [id number] 95\.br\ \.br\CC : REAGAN CAO DO\.br\ \.br\\. [...]
[2016-12-19 01:05] VITALS: BP 124/67
--- NOTE | 2016-12-19 06:41 | RADIOLOGY REPORT PS360 ---
CT ABD PELVIS W/O CONTRAST CLINICAL INDICATION: Periumbilical pain and fever C/O ABDOMINAL PAIN ORDERING PHYSICIAN: Melinda Lima MD PATIENT AGE: 31 years COMPARISON: None TECHNIQUE: Axial images obtained with sagittal and coronal reformats. PROCEDURE: Oral Contrast: None IV Contrast: None . FINDINGS: Lower thorax: No acute finding ABDOMEN: Liver: No masses or biliary dilatation. Gallbladder: Nondistended. No radio opaque stones. Pancreas: No masses or peripancreatic fluid collections. Spleen: Unremarkable. Adrenals: Unremarkable Kidneys/ureters: No masses. No renal calculi. No hydronephrosis. No perinephric fluid collections. No ureteral dilatation or obvious ureteral calculi. Stomach bowel: Nondistended. No obvious mass or thickening. Fluid debris within the stomach Appendix: No evidence of appendicitis. PELVIS: Reproductive: Unremarkable Bladder: Nondistended. No obvious stones or masses. ABDOMEN & PELVIS: Peritoneum: No abnormal fluid collections. No obvious inflammatory changes. No free air. Lymph nodes: No enlarged lymph nodes apparent. Vasculature: No evidence of abdominal aortic aneurysm. No retroperitoneal hemorrhage evident. Bones: No acute fracture IMPRESSION: Negative, no acute intra-abdominal or pelvic pathology apparent
== END 2016-12-19 01:05 | disposition home or self-care (01) ==
LOC: ER 23:34
PROVIDERS: Emergency Medicine
DX: R10.30 Lower abdominal pain, unspecified (principal); Z72.0 Tobacco use

== ENCOUNTER 2017-02-11 20:49 | Emergency (ER) | payer MEDICAID ==
[~2017-02-11] VITALS: Ht 175.3 cm; Wt 68.0 kg
[2017-02-11 21:18] VITALS: BP 116/83
--- NOTE | 2017-02-11 21:18 | Urgent Treatment Center Report ---
History of Present Issue Date/Time Seen by Provider 02/11/17 2100 Visit Reason Pt arrived:Walked Presenting Problem:PT STATES HE BENT OVER THIS AM AND HAD MID-BACK PAIN. PT HAS HX OF BACK PROBLEMS. Location if Accident: Onset of symptoms date/time:/ or onset unknown for:MEDICAL HX UNKNOWN Have you (or family members/close friends) recently traveled outside the [place]? N If Yes, where/when: Have you had exposure to infectious disease within the past month? TB? Other? 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 No Angina: No TN: No Hypertension? No Hyperlipidemia? No CHF? No DVT? No PE? No COPD? No Asthma? No Anemia? No GERD? Yes Gastric ulcers? Yes GI Bleed? No Hernia? No Thyroid Problems? No Hypothyroidism? No CVA? No Seizures? No Diabetes? No Renal Insuffiency? No UTI? No Stones? No BPH? No GB Disease: No Nephritic Syndrome? No Asplenia? No Hepatitis? No Sickle Cell Disease? No Arthritis? No Migraines? No Cataracts? No Glaucoma? No MRSA? No HIV? No TB? No Anxiety? No Depression? No Cancer? No Site: N More? Yes Additional hx: MARIJUANA USE Immunization HX DT/Tetanus < 1 YR AGO Surgical Hx Previous Surgery?N GUM SURGERY Social History Smoking Hx Smoker: Current Every Day Smoker Tobacco: Yes Type Cigarettes Packs/day < 1 Pack Alcohol Alcohol: No Review of Systems All Other Systems Reviewed and Negative Musculoskeletal back pain Physical Exam Vital Signs Vital Signs Date Time Temp Pulse Resp B/P Pulse O2 O2 Flow FiO2 Ox Delivery Rate 02/12 2108 18 02/11 2057 97.8 78 20 116/83 99 General Appearance normal appearance, WD/WN, no apparent distress Respiratory Status Yes: trachea midline, chest symmetrical, non tender chest. No: respiratory distress. 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 No Results/Orders Current Medication Orders Sig/Tameka Start time Last Medication Dose Route Stop Time Status Admin Ketorolac 0 .STK-MED ONE 02/11 2102 DC Tromethamine .ROUTE Orphenadrine Citrate 0 .STK-MED ONE 02/11 2102 DC .ROUTE Ketorolac 60 MG ONCE ONE 02/11 2100 DC 02/11 Tromethamine IM 02/11 Orphenadrine Citrate 60 MG ONCE ONE 02/11 2100 DC 02/11 IM 02/11 Progress [facility] Progress Notes Comment Patient state that medication helped with pain feels much better Departure Departure Time of Disposition 2107 Disposition DC Home or Self Care(routine) Clinical Impression Primary Impression: Back pain Qualifiers: Back pain location: low back pain Chronicity: chronic Back pain laterality: bilateral Sciatica presence: with sciatica Sciatica laterality: bilateral sciatica Qualified Code: M54.42 - Lumbago with sciatica, left side Condition STABLE Patient Instructions Back Pain (Alternative Therapy), DI for Back Pain With Sciatica Additional Instructions Follow up with family doctor if pain continued Take medication as prescribed Return if needed No heavy lifting or bending for next few days Discharge Counseling Counseled pt/family regarding diagnosis, test results, medications/RX, home care, follow up needs Prescriptions Current Visit Scripts Cyclobenzaprine Hcl (Flexeril) 10 MG PO TID #15 TAB Etodolac 200 MG PO Q6HP PRN pain #20 CAP at 2117
--- NOTE | 2017-02-11 21:18 | Urgent Treatment Center Report ---
History of Present Issue Date/Time Seen by Provider 02/11/17 2100 Visit Reason Pt arrived:Walked Presenting Problem:PT STATES HE BENT OVER THIS AM AND HAD MID-BACK PAIN. PT HAS HX OF BACK PROBLEMS. Location if Accident: Onset of symptoms date/time:/ or onset unknown for:MEDICAL HX UNKNOWN Have you (or family members/close friends) recently traveled outside the [place]? N If Yes, where/when: Have you had exposure to infectious disease within the past month? TB? Other? 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 No Angina: No MD: No Hypertension? No Hyperlipidemia? No CHF? No DVT? No PE? No COPD? No Asthma? No Anemia? No GERD? Yes Gastric ulcers? Yes GI Bleed? No Hernia? No Thyroid Problems? No Hypothyroidism? No CVA? No Seizures? No Diabetes? No Renal Insuffiency? No UTI? No Stones? No BPH? No GB Disease: No Nephritic Syndrome? No Asplenia? No Hepatitis? No Sickle Cell Disease? No Arthritis? No Migraines? No Cataracts? No Glaucoma? No MRSA? No HIV? No TB? No Anxiety? No Depression? No Cancer? No Site: N More? Yes Additional hx: MARIJUANA USE Immunization HX DT/Tetanus < 1 YR AGO Surgical Hx Previous Surgery?N GUM SURGERY Social History Smoking Hx Smoker: Current Every Day Smoker Tobacco: Yes Type Cigarettes Packs/day < 1 Pack Alcohol Alcohol: No Review of Systems All Other Systems Reviewed and Negative Musculoskeletal back pain Physical Exam Vital Signs Vital Signs Date Time Temp Pulse Resp B/P Pulse O2 O2 Flow FiO2 Ox Delivery Rate 02/12 2108 18 02/11 2057 97.8 78 20 116/83 99 General Appearance normal appearance, WD/WN, no apparent distress Respiratory Status Yes: trachea midline, chest symmetrical, non tender chest. No: respiratory distress. 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 No Results/Orders Current Medication Orders Sig/Tameka Start time Last Medication Dose Route Stop Time Status Admin Ketorolac 0 .STK-MED ONE 02/11 2102 DC Tromethamine .ROUTE Orphenadrine Citrate 0 .STK-MED ONE 02/11 2102 DC .ROUTE Ketorolac 60 MG ONCE ONE 02/11 2100 DC 02/11 Tromethamine IM 02/11 Orphenadrine Citrate 60 MG ONCE ONE 02/11 2100 DC 02/11 IM 02/[address] [facility] Progress Notes Comment Patient state that medication helped with pain feels much better Departure Departure Time of Disposition 2107 Disposition DC Home or Self Care(routine) Clinical Impression Primary Impression: Back pain Qualifiers: Back pain location: low back pain Chronicity: chronic Back pain laterality: bilateral Sciatica presence: with sciatica Sciatica laterality: bilateral sciatica Qualified Code: M54.42 - Lumbago with sciatica, left side Condition STABLE Patient Instructions Back Pain (Alternative Therapy), DI for Back Pain With Sciatica Additional Instructions Follow up with family doctor if pain continued Take medication as prescribed Return if needed No heavy lifting or bending for next few days Discharge Counseling Counseled pt/family regarding diagnosis, test results, medications/RX, home care, follow up needs Prescriptions Current Visit Scripts Cyclobenzaprine Hcl (Flexeril) 10 MG PO TID #15 TAB Etodolac 200 MG PO Q6HP PRN pain #20 CAP at 2117
== END 2017-02-11 21:21 | disposition home or self-care (01) ==
LOC: UTC 20:49
DX: M54.42 Lumbago with sciatica, left side (principal); M54.41 Lumbago with sciatica, right side; G89.29 Other chronic pain; F17.210 Nicotine dependence, cigarettes, uncomplicated